=== PATIENT | male | born 1980 | race Caucasian/White ===

== ENCOUNTER 2016-10-04 10:04 | Inpatient (IN) | payer OTHER ==
[~2016-10-04] VITALS: Ht 188 cm; Wt 77.2 kg
[2016-10-04] VITALS (36 sets, daily range): BP systolic 97–124; BP diastolic 63–81
[~2016-10-04 10:04] MED LIST: ETOMIDATE (2MG/ML) 20ML VIAL IV ONE; SUCCINYLCHOLINE CHLORIDE 20 MG/ML 10ML VIAL IV ONE
[2016-10-04] MEDS ORDERED: MIDAZOLAM DRIP 100 mg/100mL NS 100 ML IV ONE (10:05)
[2016-10-04 10:47] LABS: DEFINITIVE VIEW TRANSMISSION; Hemoglobin 12.6 g/dL (13.5-17.5); Mean Corpuscular Hemoglobin 27.4 pg (28.0-32.0); Mean Corpuscular Hgb Conc. 30.7 g/dL (32.0-36.0); Mean Corpuscular Volume 89.4 fL (80.0-100.0); Platelet Count (auto) 339 10^3/uL (140-450); Red Cell Distribution Width 18.2 % (11.6-16.0); White Blood Cell 14.5 10^3/uL (4.4-10.8)
[2016-10-04 11:04] LABS: Metamyelocytes % 0; Myelocytes % 0; Promyelocytes % 0; Reactive Lymphocytes 0
[2016-10-04 11:05] LABS: Albumin 2.4 g/dL (3.4-5.0); BUN/Creatinine Ratio 8.6; Bilirubin, Total 0.4 mg/dL (0.2-1.0); Calcium 8.5 mg/dL (8.5-10.1); Magnesium 2.6 mg/dL (1.6-2.6); Potassium 3.9 mmol/L (3.5-5.1); Total Protein 6.7 g/dL (6.4-8.2)
[2016-10-04 11:40] LABS: Platelet Estimate Adequate
[2016-10-04 11:43] LABS: Lactic Acid 7.8 mmol/L (0.4-2.0)
[2016-10-04 12:00] LABS: REFLEX LACTIC ACID YES OR NO YES
[2016-10-04] MEDS ORDERED: CLINDAMYCIN 900MG IV 50 ML IV ONE (13:00)
[2016-10-04] MEDS ORDERED: PIPERACILLIN-TAZOB 3.375GM 100 ML IV ONE (13:00)
[2016-10-04 13:37] LABS: Lactic Acid 3.5 mmol/L (0.4-2.0)
[2016-10-04] MEDS ORDERED: FUROSEMIDE 40 MG/4 ML VIAL IV ONE (13:45)
[2016-10-04] MEDS ORDERED: NITROGLYCERIN 0.4 MG SL TAB SL PRN (13:45)
[2016-10-04] MEDS ORDERED: DEXTROSE (50%) 50ML SYRG IV PRN (13:45)
[2016-10-04] MEDS ORDERED: ONDANSETRON HCL 4 MG/2 ML VIAL IV PRN (13:45)
[2016-10-04] MEDS ORDERED: MORPHINE SULF INJ 2 MG/ML SYRINGE 1ML IV PRN ×2 (13:45)
[2016-10-04] MEDS: SODIUM CHLORIDE 0.9% 1,000 ML IV SCH (13:51)
[2016-10-04 13:59] LABS: B-Type Natriuretic Peptide 4089.17 pg/mL (0-100); Temperature: 22.3 C (20.0-25.0)
[2016-10-04] MEDS: ENOXAPARIN SOD 40 MG/0.4 ML SYRINGE SC SCH (14:01)
[2016-10-04 14:08] LABS: REFLEX LACTIC ACID YES OR NO YES
[2016-10-04] MEDS ORDERED: DOPamine 1600MCG/ML 250 ML IV SCH (15:00)
[2016-10-04] MEDS: AMIODARONE HCL 900 MG in DEXTROSE 500 ML IV SCH (15:39)
[2016-10-04] MEDS: MIDAZOLAM DRIP 100 mg/100mL NS 100 ML IV SCH ×2 (15:55→22:28)
[2016-10-04] MEDS: InsuLIN REG 1unit/0.01ml Soln (100units/ml) SC SCH (18:00)
[2016-10-04] MEDS: ACCU-CHEK COMFORT CURVE STRIP VI SCH (18:00)
[2016-10-04 18:34] LABS: REFLEX LACTIC ACID YES OR NO YES
[2016-10-04] MEDS: PIPERACILLIN-TAZOB 2.25GM 50 ML IV SCH (19:00)
[2016-10-04] MEDS ORDERED: SODIUM BICARBONATE 8.4% INJ 50ML SYRINGE IV ONE (19:07)
[2016-10-04] MEDS ORDERED: EPINEPHrine HCL 1 MG/10 ML SYRG IV ONE (19:07)
[2016-10-04 20:05] LABS: REFLEX LACTIC ACID YES OR NO YES
[2016-10-04 20:10] LABS: Urine Bilirubin Negative (Negative); Urine Color Colorless (Yellow); Urine Glucose Normal (Normal); Urine Ketone Negative (Negative); Urine Nitrite Negative (Negative); Urine RBC 10 /hpf (0 - 3); Urine Squamous Epithelial Cell MOD /hpf (<5); Urine Urobilinogen Normal (Negative); Urine pH 7.5 (5.0-8.0)
[2016-10-04 20:12] LABS: Urine Blood 1+ /uL (Negative)
[2016-10-04] MEDS ORDERED: CLINDAMYCIN 300MG IV 50 ML IV SCH (22:00)
[2016-10-04] MEDS: FAMOTIDINE (10MG/ML) 2ML VL IV SCH (22:05)
[2016-10-05] VITALS (101 sets, daily range): BP systolic 93–121; BP diastolic 47–82
[2016-10-05] MEDS: InsuLIN REG 1unit/0.01ml Soln (100units/ml) SC SCH ×4 (00:32→18:00)
[2016-10-05] MEDS: ACCU-CHEK COMFORT CURVE STRIP VI SCH ×4 (00:32→18:13)
[2016-10-05] MEDS: PIPERACILLIN-TAZOB 2.25GM 50 ML IV SCH ×4 (00:34→18:14)
[2016-10-05] MEDS: PROPOFOL 100 ML IV SCH ×2 (00:36→21:30)
[2016-10-05 03:28] LABS: Basophils # (auto) 0.1 uL; Basophils % (auto) 0.9 % (0.0-2.0); Eosinophils # (auto) 0 uL; Eosinophils % (auto) 0.3 % (0.0-7.0); Hemoglobin 12.9 g/dL (13.5-17.5); Lymphocytes % (auto) 17.7 % (10.0-50.0); Mean Corpuscular Hemoglobin 27.4 pg (28.0-32.0); Mean Corpuscular Hgb Conc. 31.6 g/dL (32.0-36.0); Mean Corpuscular Volume 86.8 fL (80.0-100.0); Mean Platelet Volume 7.6 fL (7.4-10.4); Monocytes # (auto) 0.6 uL; Monocytes % (auto) 5.8 % (0.0-12.0); Neutrophils # (auto) 8.4 uL; Neutrophils % (auto) 75.3 % (37.0-80.0); Platelet Count (auto) 342 10^3/uL (140-450); Red Cell Distribution Width 17.1 % (11.6-16.0); White Blood Cell 11.1 10^3/uL (4.4-10.8)
[2016-10-05 03:46] LABS: Albumin 2.2 g/dL (3.4-5.0); BUN/Creatinine Ratio 8.4; Calcium 7.9 mg/dL (8.5-10.1); Potassium 3.8 mmol/L (3.5-5.1)
[2016-10-05 03:49] LABS: Bilirubin, Total 0.8 mg/dL (0.2-1.0)
[2016-10-05] MEDS: MIDAZOLAM DRIP 100 mg/100mL NS 100 ML IV SCH ×2 (04:18→10:50)
[2016-10-05] MEDS: SODIUM CHLORIDE 0.9% 1,000 ML IV SCH ×2 (06:21→11:32)
[2016-10-05] MEDS: FUROSEMIDE 40 MG/4 ML VIAL IV SCH (09:28)
[2016-10-05] MEDS: ENOXAPARIN SOD 40 MG/0.4 ML SYRINGE SC SCH (09:28)
[2016-10-05] MEDS: FAMOTIDINE (10MG/ML) 2ML VL IV SCH ×2 (09:29→21:36)
[2016-10-05] MEDS ORDERED: DIGOXIN (250MCG/ML) 2 ML AMPULE IV SCH (10:15)
[2016-10-05] MEDS: fentaNYL Drip 2500mCg/250mlNS 250 ML IV SCH (11:35)
[2016-10-05] MEDS: AMIODARONE HCL 900 MG in DEXTROSE 500 ML IV SCH ×2 (14:15→22:36)
[2016-10-05] MEDS ORDERED: DOPamine 1600MCG/ML 250 ML IV SCH ×2 (15:00)
[2016-10-05] MEDS: DIGOXIN (250MCG/ML) 2 ML AMPULE IV SCH ×2 (16:41→21:38)
[2016-10-05 19:22] LABS: Basophils # (auto) 0.2 uL; Basophils % (auto) 2.4 % (0.0-2.0); DEFINITIVE VIEW TRANSMISSION; Eosinophils # (auto) 0.1 uL; Eosinophils % (auto) 1.2 % (0.0-7.0); Hematocrit 45.9 % (41.0-53.0); Hemoglobin 14.2 g/dL (13.5-17.5); Lymphocytes # (auto) 2.6 uL; Mean Corpuscular Hemoglobin 27.2 pg (28.0-32.0); Mean Corpuscular Hgb Conc. 30.9 g/dL (32.0-36.0); Mean Corpuscular Volume 87.8 fL (80.0-100.0); Mean Platelet Volume 7.3 fL (7.4-10.4); Monocytes # (auto) 0.5 uL; Monocytes % (auto) 4.8 % (0.0-12.0); Neutrophils # (auto) 6.7 uL; Neutrophils % (auto) 65.6 % (37.0-80.0); Platelet Count (auto) 293 10^3/uL (140-450); Red Cell Distribution Width 16.2 % (11.6-16.0); SUSPECT VIEW TRANSMISSION; White Blood Cell 10.1 10^3/uL (4.4-10.8)
[2016-10-05 19:50] LABS: Albumin 2.1 g/dL (3.4-5.0); BUN/Creatinine Ratio 7.7; Bilirubin, Total 0.9 mg/dL (0.2-1.0); Calcium 8.8 mg/dL (8.5-10.1); Potassium 3.4 mmol/L (3.5-5.1); Total Protein 6.3 g/dL (6.4-8.2)
[2016-10-05] MEDS: POTASSIUM CHL 20MEQ/100ML 100 ML IV SCH ×2 (21:35→23:16)
[2016-10-06] VITALS (78 sets, daily range): BP systolic 84–134; BP diastolic 34–87
[2016-10-06] MEDS: PIPERACILLIN-TAZOB 2.25GM 50 ML IV SCH ×3 (01:00→13:27)
[2016-10-06] MEDS: DIGOXIN (250MCG/ML) 2 ML AMPULE IV SCH (03:37)
[2016-10-06 03:47] LABS: Basophils # (auto) 0.1 uL; Basophils % (auto) 1.5 % (0.0-2.0); Eosinophils # (auto) 0.2 uL; Eosinophils % (auto) 2.1 % (0.0-7.0); Hematocrit 41.7 % (41.0-53.0); Hemoglobin 12.9 g/dL (13.5-17.5); Lymphocytes # (auto) 1.9 uL; Lymphocytes % (auto) 21.6 % (10.0-50.0); Mean Corpuscular Hemoglobin 27.2 pg (28.0-32.0); Mean Corpuscular Volume 87.8 fL (80.0-100.0); Mean Platelet Volume 7.5 fL (7.4-10.4); Monocytes # (auto) 0.6 uL; Monocytes % (auto) 7.1 % (0.0-12.0); Neutrophils # (auto) 5.9 uL; Neutrophils % (auto) 67.7 % (37.0-80.0); Platelet Count (auto) 283 10^3/uL (140-450); Red Cell Distribution Width 16.7 % (11.6-16.0); White Blood Cell 8.7 10^3/uL (4.4-10.8)
[2016-10-06 04:06] LABS: BUN/Creatinine Ratio 7.9; Calcium 8.2 mg/dL (8.5-10.1); Magnesium 2.9 mg/dL (1.6-2.6); Potassium 3.8 mmol/L (3.5-5.1)
[2016-10-06] MEDS: InsuLIN REG 1unit/0.01ml Soln (100units/ml) SC SCH ×3 (06:00→12:00)
[2016-10-06] MEDS: ACCU-CHEK COMFORT CURVE STRIP VI SCH ×3 (06:14→12:03)
[2016-10-06] MEDS: SODIUM CHLORIDE 0.9% 1,000 ML IV SCH (06:15)
[2016-10-06] MEDS ORDERED: EPINEPHrine HCL 1 MG/10 ML SYRG IV ONE (07:45)
[2016-10-06] MEDS ORDERED: LIDOCAINE HCL 100 MG/5ML (2%) SYRG INJ IV ONE (07:45)
[2016-10-06] MEDS ORDERED: MAGNESIUM SULF 50% 40 MEQ/10 ML VL IV ONE (07:45)
[2016-10-06] MEDS ORDERED: LIDOCAINE 50MG/5ML INJ 5ML SYRINGE IV ONE (08:30)
[2016-10-06] MEDS ORDERED: LIDOCAINE 4MG/ML IV SOLN 500 ML IV SCH (08:30)
[2016-10-06] MEDS ORDERED: DIGOXIN (250MCG/ML) 2 ML AMPULE IV SCH ×2 (10:00)
[2016-10-06] MEDS: FUROSEMIDE 40 MG/4 ML VIAL IV SCH (10:19)
[2016-10-06] MEDS: ENOXAPARIN SOD 40 MG/0.4 ML SYRINGE SC SCH (10:19)
[2016-10-06] MEDS: FAMOTIDINE (10MG/ML) 2ML VL IV SCH (10:19)
[2016-10-06] MEDS: PROPOFOL 100 ML IV SCH (10:19)
[2016-10-06] MEDS: fentaNYL Drip 2500mCg/250mlNS 250 ML IV SCH (10:48)
[2016-10-06] MEDS: MIDAZOLAM DRIP 100 mg/100mL NS 100 ML IV SCH (13:27)
[2016-10-06] MEDS ORDERED: ONDANSETRON HCL 4 MG/2 ML VIAL ONE (21:21)
[2016-10-06] MEDS ORDERED: ONDANSETRON HCL 4 MG/2 ML VIAL IV PRN (21:30)
[2016-10-07] MEDS: LORazepam 2MG/ML-1ML VIAL IV PRN ×3 (01:42→22:06)
[2016-10-07] MEDS: MORPHINE SULF INJ 2 MG/ML SYRINGE 1ML IV PRN ×3 (01:44→20:24)
[2016-10-07] MEDS ORDERED: AMIO200T33 PO (02:54)
[2016-10-07] MEDS ORDERED: DIGO0.1262 PO (02:55)
[2016-10-07] MEDS ORDERED: ENOX80IN8 SC (02:57)
[2016-10-07] MEDS ORDERED: METO25TA62 PO (02:57)
[2016-10-07 05:26] VITALS: BP 115/63
[2016-10-07 08:45] VITALS: BP 115/68
[2016-10-07 13:00] VITALS: BP 124/74
[2016-10-07] MEDS ORDERED: DIGOXIN 0.125 MG TAB PO ONE (16:45)
[2016-10-07] MEDS ORDERED: METOPROLOL TARTRATE 25 MG TAB PO ONE (16:45)
[2016-10-07] MEDS: AMIODARONE HCL 200 MG TAB PO SCH (16:50)
[2016-10-07 16:57] VITALS: BP 116/72
[2016-10-07] MEDS: ENOXAPARIN SOD 60 MG/0.6 ML SYRINGE SC SCH (17:33)
[2016-10-07 22:57] VITALS: BP 115/69
[2016-10-08] VITALS (7 sets, daily range): BP systolic 111–122; BP diastolic 70–81
[2016-10-08] MEDS: MORPHINE SULF INJ 2 MG/ML SYRINGE 1ML IV PRN ×6 (01:26→20:10)
[2016-10-08] MEDS: ENOXAPARIN SOD 60 MG/0.6 ML SYRINGE SC SCH ×2 (06:38→17:20)
[2016-10-08] MEDS: DIGOXIN 0.125 MG TAB PO SCH (09:35)
[2016-10-08] MEDS: AMIODARONE HCL 200 MG TAB PO SCH (09:36)
[2016-10-08] MEDS ORDERED: METOPROLOL TARTRATE 25 MG TAB PO SCH (10:00)
[2016-10-08] MEDS ORDERED: FUROSEMIDE 20 MG TAB PO ONE (11:40)
[2016-10-08] MEDS ORDERED: SPIRONOLACTONE 25 MG TAB PO ONE (11:45)
[2016-10-08] MEDS ORDERED: DEXTROSE (50%) 50ML SYRG IV PRN (11:45)
[2016-10-08] MEDS ORDERED: ASPirin-EC 81 mg tab PO ONE (12:00)
[2016-10-08 12:58] LABS: B-Type Natriuretic Peptide 2120.42 pg/mL (0-100); Temperature: 22.3 C (20.0-25.0)
[2016-10-08] MEDS: PIPERACILLIN-TAZOB 3.375GM 100 ML IV SCH ×2 (14:31→17:19)
[2016-10-08] MEDS: ACCU-CHEK COMFORT CURVE STRIP VI SCH ×2 (17:00→21:47)
[2016-10-08] MEDS: InsuLIN REG 1unit/0.01ml Soln (100units/ml) SC SCH ×2 (17:00→21:48)
[2016-10-08] MEDS: CARVEDILOL 3.125 MG TAB PO SCH (22:00)
[2016-10-08] MEDS: ATORVASTATIN 20 MG TAB PO SCH (22:00)
[2016-10-08] MEDS: LORazepam 2MG/ML-1ML VIAL IV PRN (23:26)
[2016-10-09 01:51] VITALS: BP 107/68
[2016-10-09] MEDS: MORPHINE SULF INJ 2 MG/ML SYRINGE 1ML IV PRN ×8 (01:52→23:44)
[2016-10-09 04:59] VITALS: BP 104/61
[2016-10-09] MEDS: ENOXAPARIN SOD 60 MG/0.6 ML SYRINGE SC SCH ×2 (05:39→17:16)
[2016-10-09] MEDS: PIPERACILLIN-TAZOB 3.375GM 100 ML IV SCH ×4 (05:43→17:17)
[2016-10-09 06:05] LABS: Basophils # (auto) 0.1 uL; Basophils % (auto) 0.7 % (0.0-2.0); Eosinophils # (auto) 0.2 uL; Eosinophils % (auto) 2.7 % (0.0-7.0); Hematocrit 40.6 % (41.0-53.0); Hemoglobin 12.6 g/dL (13.5-17.5); Lymphocytes # (auto) 3.2 uL; Lymphocytes % (auto) 39.1 % (10.0-50.0); Mean Corpuscular Hemoglobin 27.1 pg (28.0-32.0); Mean Corpuscular Volume 87.6 fL (80.0-100.0); Mean Platelet Volume 8.1 fL (7.4-10.4); Monocytes # (auto) 0.7 uL; Monocytes % (auto) 8.1 % (0.0-12.0); Neutrophils # (auto) 4.1 uL; Neutrophils % (auto) 49.4 % (37.0-80.0); Platelet Count (auto) 354 10^3/uL (140-450); Red Cell Distribution Width 17.3 % (11.6-16.0); White Blood Cell 8.3 10^3/uL (4.4-10.8)
[2016-10-09] MEDS: InsuLIN REG 1unit/0.01ml Soln (100units/ml) SC SCH ×4 (06:18→22:00)
[2016-10-09] MEDS: ACCU-CHEK COMFORT CURVE STRIP VI SCH ×4 (06:18→22:01)
[2016-10-09 06:22] LABS: BUN/Creatinine Ratio 5.7; Calcium 8.1 mg/dL (8.5-10.1); Magnesium 1.8 mg/dL (1.6-2.6); Potassium 3.6 mmol/L (3.5-5.1)
[2016-10-09 08:48] VITALS: BP 117/78
[2016-10-09] MEDS: CARVEDILOL 3.125 MG TAB PO SCH ×2 (08:51→22:00)
[2016-10-09] MEDS: ASPirin-EC 81 mg tab PO SCH (08:54)
[2016-10-09] MEDS: FUROSEMIDE 20 MG TAB PO SCH (09:29)
[2016-10-09] MEDS: AMIODARONE HCL 200 MG TAB PO SCH (09:29)
[2016-10-09] MEDS: POTASSIUM CHL 10 Meq TABLET PO SCH (09:29)
[2016-10-09] MEDS: DIGOXIN 0.125 MG TAB PO SCH (09:32)
[2016-10-09] MEDS: SPIRONOLACTONE 25 MG TAB PO SCH (09:32)
[2016-10-09] MEDS: LORazepam 2MG/ML-1ML VIAL IV PRN (10:26)
[2016-10-09] MEDS ORDERED: LIDOCAINE HCL 2% TOP PRN (10:45)
[2016-10-09] MEDS: LIDOCAINE HCL 2% TOP JELLY 5ML TOP PRN (11:41)
[2016-10-09 13:02] VITALS: BP 119/75
[2016-10-09] MEDS: CIPROFLOXACIN 400MG/200ML 200 ML IV SCH (14:26)
[2016-10-09 17:45] VITALS: BP 127/87
[2016-10-09] MEDS: ATORVASTATIN 20 MG TAB PO SCH (21:51)
[2016-10-09 22:14] VITALS: BP 114/79
[2016-10-10] MEDS: PIPERACILLIN-TAZOB 3.375GM 100 ML IV SCH ×4 (00:38→17:41)
[2016-10-10] MEDS: LIDOCAINE HCL 2% TOP JELLY 5ML TOP PRN ×2 (00:48→10:40)
[2016-10-10] MEDS: MORPHINE SULF INJ 2 MG/ML SYRINGE 1ML IV PRN ×8 (02:17→22:28)
[2016-10-10] MEDS: CIPROFLOXACIN 400MG/200ML 200 ML IV SCH ×2 (04:11→14:27)
[2016-10-10 05:17] VITALS: BP 113/66
[2016-10-10] MEDS: ENOXAPARIN SOD 60 MG/0.6 ML SYRINGE SC SCH ×2 (05:57→17:40)
[2016-10-10] MEDS: ACCU-CHEK COMFORT CURVE STRIP VI SCH ×4 (05:58→21:19)
[2016-10-10] MEDS: InsuLIN REG 1unit/0.01ml Soln (100units/ml) SC SCH ×4 (05:59→21:19)
[2016-10-10 06:50] LABS: Basophils # (auto) 0.1 uL; Basophils % (auto) 1.1 % (0.0-2.0); Eosinophils # (auto) 0.2 uL; Eosinophils % (auto) 2.4 % (0.0-7.0); Hematocrit 38.3 % (41.0-53.0); Hemoglobin 11.9 g/dL (13.5-17.5); Lymphocytes # (auto) 2.7 uL; Lymphocytes % (auto) 33.8 % (10.0-50.0); Mean Corpuscular Hemoglobin 27.1 pg (28.0-32.0); Mean Corpuscular Hgb Conc. 31.2 g/dL (32.0-36.0); Mean Corpuscular Volume 86.7 fL (80.0-100.0); Mean Platelet Volume 8.4 fL (7.4-10.4); Monocytes # (auto) 0.7 uL; Monocytes % (auto) 8.5 % (0.0-12.0); Neutrophils # (auto) 4.3 uL; Neutrophils % (auto) 54.2 % (37.0-80.0); Platelet Count (auto) 344 10^3/uL (140-450); Red Cell Distribution Width 17.4 % (11.6-16.0); White Blood Cell 7.9 10^3/uL (4.4-10.8)
[2016-10-10 07:15] LABS: Albumin 2.1 g/dL (3.4-5.0); Magnesium 1.7 mg/dL (1.6-2.6); Potassium 3.6 mmol/L (3.5-5.1)
[2016-10-10 07:17] LABS: BUN/Creatinine Ratio 5.7
[2016-10-10 07:20] LABS: Bilirubin, Total 0.5 mg/dL (0.2-1.0); INR 1.43 (0.9-1.15); Prothrombin Time 14.7 sec (9.37-12.3); Total Protein 5.9 g/dL (6.4-8.2)
[2016-10-10] MEDS: LORazepam 2MG/ML-1ML VIAL IV PRN ×2 (08:44→15:56)
[2016-10-10 08:55] VITALS: BP 107/81
[2016-10-10] MEDS: CARVEDILOL 3.125 MG TAB PO SCH ×2 (10:00→22:36)
[2016-10-10] MEDS: ASPirin-EC 81 mg tab PO SCH (10:00)
[2016-10-10] MEDS: SPIRONOLACTONE 25 MG TAB PO SCH (10:00)
[2016-10-10] MEDS: AMIODARONE HCL 200 MG TAB PO SCH (10:38)
[2016-10-10] MEDS: FUROSEMIDE 20 MG TAB PO SCH (10:38)
[2016-10-10] MEDS: DIGOXIN 0.125 MG TAB PO SCH (10:39)
[2016-10-10] MEDS: POTASSIUM CHL 10 Meq TABLET PO SCH (10:39)
[2016-10-10 12:55] VITALS: BP 124/85
[2016-10-10] MEDS ORDERED: HYDROCORTONE 1% TOPICAL CREAM 30 GM TUBE TOP PRN (13:45)
[2016-10-10] MEDS ORDERED: diphenhdrAMINE HCL 25 MG CAP PO PRN (13:45)
[2016-10-10 16:44] VITALS: BP 122/84
[2016-10-10 21:42] VITALS: BP 124/85
[2016-10-10] MEDS: ATORVASTATIN 20 MG TAB PO SCH (22:36)
[2016-10-11] MEDS: PIPERACILLIN-TAZOB 3.375GM 100 ML IV SCH ×3 (00:38→11:37)
[2016-10-11] MEDS: MORPHINE SULF INJ 2 MG/ML SYRINGE 1ML IV PRN ×4 (00:46→22:04)
[2016-10-11] MEDS: CIPROFLOXACIN 400MG/200ML 200 ML IV SCH ×2 (03:00→15:00)
[2016-10-11 04:35] VITALS: BP 119/75
[2016-10-11 05:15] LABS: Basophils # (auto) 0.1 uL; Eosinophils # (auto) 0.2 uL; Eosinophils % (auto) 2.4 % (0.0-7.0); Hematocrit 38.7 % (41.0-53.0); Hemoglobin 12.1 g/dL (13.5-17.5); Lymphocytes # (auto) 2.4 uL; Lymphocytes % (auto) 32.7 % (10.0-50.0); Mean Corpuscular Hgb Conc. 31.3 g/dL (32.0-36.0); Mean Corpuscular Volume 86.5 fL (80.0-100.0); Mean Platelet Volume 8.1 fL (7.4-10.4); Monocytes # (auto) 0.7 uL; Monocytes % (auto) 9.3 % (0.0-12.0); Neutrophils # (auto) 4.1 uL; Neutrophils % (auto) 54.6 % (37.0-80.0); Platelet Count (auto) 368 10^3/uL (140-450); Red Cell Distribution Width 17.5 % (11.6-16.0); White Blood Cell 7.4 10^3/uL (4.4-10.8)
[2016-10-11 05:36] LABS: INR 1.57 (0.9-1.15); Prothrombin Time 16.2 sec (9.37-12.3)
[2016-10-11 05:39] LABS: Potassium 3.4 mmol/L (3.5-5.1)
[2016-10-11 05:47] LABS: BUN/Creatinine Ratio 5.4; Calcium 7.9 mg/dL (8.5-10.1); Magnesium 1.7 mg/dL (1.6-2.6)
[2016-10-11] MEDS: ACCU-CHEK COMFORT CURVE STRIP VI SCH ×4 (05:53→22:08)
[2016-10-11] MEDS: InsuLIN REG 1unit/0.01ml Soln (100units/ml) SC SCH ×4 (05:53→22:00)
[2016-10-11 09:00] VITALS: BP 116/80
[2016-10-11] MEDS: DOCUSATE SOD 100 MG CAP PO SCH ×2 (10:00→21:55)
[2016-10-11] MEDS: AMIODARONE HCL 200 MG TAB PO SCH (10:00)
[2016-10-11] MEDS: SPIRONOLACTONE 25 MG TAB PO SCH (10:00)
[2016-10-11] MEDS: ASPirin-EC 81 mg tab PO SCH (10:00)
[2016-10-11] MEDS: CARVEDILOL 3.125 MG TAB PO SCH ×2 (10:19→21:57)
[2016-10-11] MEDS: FUROSEMIDE 20 MG TAB PO SCH (10:19)
[2016-10-11] MEDS: POTASSIUM CHL 10 Meq TABLET PO SCH (10:19)
[2016-10-11] MEDS: DIGOXIN 0.125 MG TAB PO SCH (10:19)
[2016-10-11] MEDS ORDERED: IOHEXOL 350 MG/ML 100ML IJ ONE ×2 (11:17→14:03)
[2016-10-11] MEDS ORDERED: LIDOCAINE 2%HCL (LOCAL ANESTH.) INJ 20ML MDV ONE ×4 (11:17→17:14)
[2016-10-11] MEDS: LORazepam 2MG/ML-1ML VIAL IV PRN (11:52)
[2016-10-11] MEDS ORDERED: MAGNESIUM SULFATE 1GM/100ML 100 ML IV ONE (12:45)
[2016-10-11 12:46] VITALS: BP 123/84
[2016-10-11] MEDS ORDERED: POTASSIUM CHL 10 Meq TABLET PO ONE (13:00)
[2016-10-11] MEDS ORDERED: VANCOMYCIN HCL 1000 MG VL IR ONE (13:30)
[2016-10-11] MEDS ORDERED: ceFAZolin 1GM/50ML D5W 50 ML IV ONE ×2 (13:30→13:35)
[2016-10-11] MEDS ORDERED: VANCOMYCIN 1GM/250ML D5W 250 ML IV ONE ×2 (13:30→13:35)
[2016-10-11] MEDS ORDERED: VANCOMYCIN HCL 1000 MG VL ONE (13:35)
[2016-10-11] MEDS ORDERED: fentaNYL CITRATE 100 MCG/2 ML VL ONE ×2 (14:27→16:54)
[2016-10-11] MEDS ORDERED: MIDAZOLAM HCL 1MG/1ML-2 ML VIAL ONE ×3 (14:27→17:33)
[2016-10-11] MEDS ORDERED: HYDROmorphone HCL 2 MG/ML VL ONE (17:12)
[2016-10-11] MEDS ORDERED: NALOXONE HCL 0.4 MG/ML VIAL ONE (17:50)
[2016-10-11] MEDS ORDERED: FLUMAZENIL 0.1 MG/ML INJ 10ML MDV IV ONE (17:51)
[2016-10-11] MEDS ORDERED: FUROSEMIDE 40 MG/4 ML VIAL ONE (17:59)
[2016-10-11] MEDS: ENOXAPARIN SOD 60 MG/0.6 ML SYRINGE SC SCH (18:00)
[2016-10-11] MEDS: VANCOMYCIN 1GM/250ML D5W 250 ML IV SCH (21:48)
[2016-10-11] MEDS: ATORVASTATIN 20 MG TAB PO SCH (21:56)
[2016-10-11 22:00] VITALS: BP 109/76
[2016-10-12] MEDS: MORPHINE SULF INJ 2 MG/ML SYRINGE 1ML IV PRN ×10 (00:12→22:13)
[2016-10-12] MEDS: CIPROFLOXACIN 400MG/200ML 200 ML IV SCH ×2 (02:59→14:50)
[2016-10-12] MEDS: LORazepam 2MG/ML-1ML VIAL IV PRN (04:44)
[2016-10-12 05:10] LABS: Basophils # (auto) 0.1 uL; Basophils % (auto) 1.4 % (0.0-2.0); Eosinophils # (auto) 0.1 uL; Eosinophils % (auto) 1.5 % (0.0-7.0); Hematocrit 37.8 % (41.0-53.0); Lymphocytes # (auto) 2.1 uL; Mean Corpuscular Hemoglobin 27.3 pg (28.0-32.0); Mean Corpuscular Hgb Conc. 31.7 g/dL (32.0-36.0); Mean Platelet Volume 8.2 fL (7.4-10.4); Monocytes # (auto) 0.9 uL; Monocytes % (auto) 10.4 % (0.0-12.0); Neutrophils # (auto) 5.3 uL; Neutrophils % (auto) 61.7 % (37.0-80.0); Platelet Count (auto) 385 10^3/uL (140-450); Red Cell Distribution Width 17.8 % (11.6-16.0); White Blood Cell 8.5 10^3/uL (4.4-10.8)
[2016-10-12 05:16] VITALS: BP 108/75
[2016-10-12 05:33] LABS: Calcium 8.1 mg/dL (8.5-10.1); Magnesium 1.9 mg/dL (1.6-2.6); Potassium 3.9 mmol/L (3.5-5.1)
[2016-10-12 05:40] LABS: BUN/Creatinine Ratio 5.9
[2016-10-12] MEDS: ENOXAPARIN SOD 60 MG/0.6 ML SYRINGE SC SCH (06:27)
[2016-10-12] MEDS: InsuLIN REG 1unit/0.01ml Soln (100units/ml) SC SCH ×4 (06:31→22:00)
[2016-10-12] MEDS: ACCU-CHEK COMFORT CURVE STRIP VI SCH ×4 (06:31→22:20)
[2016-10-12 09:05] VITALS: BP 129/92
[2016-10-12] MEDS: VANCOMYCIN 1GM/250ML D5W 250 ML IV SCH (09:50)
[2016-10-12] MEDS: ASPirin-EC 81 mg tab PO SCH (09:50)
[2016-10-12] MEDS: CARVEDILOL 3.125 MG TAB PO SCH ×2 (09:50→22:12)
[2016-10-12] MEDS: AMIODARONE HCL 200 MG TAB PO SCH (09:51)
[2016-10-12] MEDS: SPIRONOLACTONE 25 MG TAB PO SCH (09:51)
[2016-10-12] MEDS: POTASSIUM CHL 10 Meq TABLET PO SCH (09:51)
[2016-10-12] MEDS: DIGOXIN 0.125 MG TAB PO SCH (09:51)
[2016-10-12] MEDS: FUROSEMIDE 20 MG TAB PO SCH (09:51)
[2016-10-12] MEDS: DOCUSATE SOD 100 MG CAP PO SCH ×2 (09:51→22:11)
[2016-10-12] MEDS ORDERED: MAGNESIUM SULFATE 1GM/100ML 100 ML IV ONE (11:00)
[2016-10-12 12:39] VITALS: BP 126/91
[2016-10-12 16:46] VITALS: BP 127/77
[2016-10-12 21:30] VITALS: BP 120/78
[2016-10-12] MEDS ORDERED: APIXABAN 5 MG TAB PO SCH (22:00)
[2016-10-12] MEDS: ATORVASTATIN 20 MG TAB PO SCH (22:11)
[2016-10-13] MEDS: MORPHINE SULF INJ 2 MG/ML SYRINGE 1ML IV PRN ×3 (00:57→11:24)
[2016-10-13] MEDS: CIPROFLOXACIN 400MG/200ML 200 ML IV SCH (02:38)
[2016-10-13 05:35] VITALS: BP 109/68
[2016-10-13] MEDS: InsuLIN REG 1unit/0.01ml Soln (100units/ml) SC SCH ×4 (06:36→22:00)
[2016-10-13] MEDS: ACCU-CHEK COMFORT CURVE STRIP VI SCH ×4 (06:36→22:16)
[2016-10-13 07:12] LABS: BUN/Creatinine Ratio 6.2; Calcium 8.2 mg/dL (8.5-10.1); Potassium 3.6 mmol/L (3.5-5.1)
[2016-10-13 08:42] VITALS: BP 105/62
[2016-10-13] MEDS: Boost Glucose Control 8 Ounces PO SCH ×3 (10:00→22:14)
[2016-10-13] MEDS: ASPirin-EC 81 mg tab PO SCH (11:22)
[2016-10-13] MEDS: FUROSEMIDE 20 MG TAB PO SCH (11:23)
[2016-10-13] MEDS: SPIRONOLACTONE 25 MG TAB PO SCH (11:23)
[2016-10-13] MEDS: AMIODARONE HCL 200 MG TAB PO SCH (11:23)
[2016-10-13] MEDS: DOCUSATE SOD 100 MG CAP PO SCH ×2 (11:24→22:15)
[2016-10-13] MEDS: CARVEDILOL 3.125 MG TAB PO SCH (11:24)
[2016-10-13] MEDS: POTASSIUM CHL 10 Meq TABLET PO SCH (11:24)
[2016-10-13] MEDS: DIGOXIN 0.125 MG TAB PO SCH (11:36)
[2016-10-13] MEDS ORDERED: SPIR25TA88 PO (11:40)
[2016-10-13] MEDS ORDERED: ATOR20TA50 PO (11:40)
[2016-10-13] MEDS ORDERED: CAP125T PO (11:40)
[2016-10-13] MEDS ORDERED: POTA-167 PO (11:40)
[2016-10-13] MEDS ORDERED: ASP81EC PO (11:40)
[2016-10-13] MEDS ORDERED: FUR20T PO (11:40)
[2016-10-13] MEDS ORDERED: SACC250C PO (12:17)
[2016-10-13] MEDS ORDERED: DOXY-216 PO (12:21)
[2016-10-13 13:00] VITALS: BP 121/82
[2016-10-13] MEDS: CAPTOPRIL 12.5 MG TAB PO SCH ×2 (14:45→22:15)
[2016-10-13] MEDS ORDERED: ONDANSETRON HCL 4 MG/2 ML VIAL IV PRN (17:15)
[2016-10-13] MEDS: PRO-STAT 64 30ML PO SCH (17:22)
[2016-10-13 17:34] VITALS: BP 117/73
[2016-10-13] MEDS: HYDROcodone-ACET 5/325MG TAB PO PRN (18:54)
[2016-10-13 22:00] VITALS: BP 109/67
[2016-10-13] MEDS ORDERED: CIPROFLOXACIN HCL 500 MG TAB PO SCH (22:00)
[2016-10-13] MEDS ORDERED: ENOXAPARIN SOD 60 MG/0.6 ML SYRINGE SC SCH (22:00)
[2016-10-13] MEDS: DOXYCYCLINE 100 MG TAB/CAP PO SCH (22:15)
[2016-10-13] MEDS: ATORVASTATIN 20 MG TAB PO SCH (22:15)
[2016-10-13] MEDS: ENOXAPARIN SOD 80 MG/0.8ML SYRINGE SC SCH (22:16)
[2016-10-14 05:00] VITALS: BP 115/75
[2016-10-14] MEDS: CAPTOPRIL 12.5 MG TAB PO SCH (06:10)
[2016-10-14] MEDS: ACCU-CHEK COMFORT CURVE STRIP VI SCH ×2 (06:44→11:30)
[2016-10-14] MEDS: InsuLIN REG 1unit/0.01ml Soln (100units/ml) SC SCH ×2 (06:44→11:30)
[2016-10-14] MEDS: PRO-STAT 64 30ML PO SCH (08:00)
[2016-10-14 08:50] VITALS: BP 126/73
[2016-10-14] MEDS: DOXYCYCLINE 100 MG TAB/CAP PO SCH (08:58)
[2016-10-14] MEDS: POTASSIUM CHL 10 Meq TABLET PO SCH (08:59)
[2016-10-14] MEDS: DIGOXIN 0.125 MG TAB PO SCH (08:59)
[2016-10-14] MEDS: DOCUSATE SOD 100 MG CAP PO SCH (08:59)
[2016-10-14] MEDS: AMIODARONE HCL 200 MG TAB PO SCH (08:59)
[2016-10-14] MEDS: Boost Glucose Control 8 Ounces PO SCH (09:00)
[2016-10-14] MEDS: ENOXAPARIN SOD 80 MG/0.8ML SYRINGE SC SCH (09:00)
[2016-10-14] MEDS: ASPirin-EC 81 mg tab PO SCH (09:00)
[2016-10-14] MEDS: FUROSEMIDE 20 MG TAB PO SCH (09:00)
[2016-10-14] MEDS: SPIRONOLACTONE 25 MG TAB PO SCH (09:00)
[2016-10-14] MEDS: HYDROcodone-ACET 5/325MG TAB PO PRN (10:48)
[2016-10-14] MEDS ORDERED: LACTULOSE 20Gm/30ML SOLN PO ONE (11:00)
[2016-10-14 13:00] VITALS: BP 113/77
== END 2016-10-14 12:00 | DRG 853 ==
LOC: EDUNIT# 10:04 → ER 10:14 → TELE 10:15 → ICU WEST 16:49 → TELE-EAST 10-07 01:07
PROVIDERS: ADMIT Internal Medicine; ATTEND Internal Medicine
PROC: 5A1945Z Respiratory Ventilation, 24-96 Consecutive Hours (ICD-10-PCS; 2016-10-04)
PROC: 0BH17EZ Insertion of Endotracheal Airway into Trachea, Via Natural or Artificial Opening (ICD-10-PCS; 2016-10-04)
PROC: 0JH609Z Insertion of Cardiac Resynchronization Defibrillator Pulse Generator into Chest Subcutaneous Tissue and Fascia, Open Approach (ICD-10-PCS; principal; 2016-10-11)
PROC: 02H63KZ Insertion of Defibrillator Lead into Right Atrium, Percutaneous Approach (ICD-10-PCS; 2016-10-11)
PROC: 02HK3KZ Insertion of Defibrillator Lead into Right Ventricle, Percutaneous Approach (ICD-10-PCS; 2016-10-11)
PROC: B2141ZZ Fluoroscopy of Right Heart using Low Osmolar Contrast (ICD-10-PCS; 2016-10-11)
PROC: 0W993ZX Drainage of Right Pleural Cavity, Percutaneous Approach, Diagnostic (ICD-10-PCS; 2016-10-13)
DX: A41.9 Sepsis, unspecified organism (principal); J96.21 Acute and chronic respiratory failure with hypoxia; I46.9 Cardiac arrest, cause unspecified; I50.43 Acute on chronic combined systolic (congestive) and diastolic (congestive) heart failure; J69.0 Pneumonitis due to inhalation of food and vomit; E43 Unspecified severe protein-calorie malnutrition; G93.41 Metabolic encephalopathy; N17.0 Acute kidney failure with tubular necrosis; D68.69 Other thrombophilia; I13.0 Hypertensive heart and chronic kidney disease with heart failure and stage 1 through stage 4 chronic kidney disease, or unspecified chronic kidney disease; I47.2 Ventricular tachycardia; I42.0 Dilated cardiomyopathy; I48.92 Unspecified atrial flutter; J90 Pleural effusion, not elsewhere classified; Z99.11 Dependence on respirator [ventilator] status; I48.0 Paroxysmal atrial fibrillation; E11.22 Type 2 diabetes mellitus with diabetic chronic kidney disease; N18.9 Chronic kidney disease, unspecified; Z66 Do not resuscitate; F32.9 Major depressive disorder, single episode, unspecified; I45.9 Conduction disorder, unspecified; F43.10 Post-traumatic stress disorder, unspecified; G89.4 Chronic pain syndrome; F41.9 Anxiety disorder, unspecified; K59.00 Constipation, unspecified; Z86.79 Personal history of other diseases of the circulatory system; Z95.810 Presence of automatic (implantable) cardiac defibrillator; Z76.82 Awaiting organ transplant status; Z68.21 Body mass index [BMI] 21.0-21.9, adult
CPT/HCPCS: 31500; 33249; 36415; 36600; 51702; 70450; 71010; 76604; 76942; 80048; 80053; 80061; 80162; 81001; 82805; 82962; 83036; 83605; 83735; 83880; 84484; 85007; 85025; 85027; 85049; 85610; 87040; 87070; 87077; 87081; 87086; 87186; 87205; 92610; 92950; 93005; 93306; 94002; 94003; 96365; 99152; 99291; J0330; J0690; J2250; J2405; J2543; J2704; J3010; J3480; J3490

== ENCOUNTER → 2016-11-15 | Outpatient (CLI) | payer OTHER ==
[~2016-11-15] VITALS: Ht 33 cm; Wt 0.5 kg
[~2016-11-15] MED LIST changes: +AMIO200T33 PO; +ASP81EC PO; +ATOR20TA50 PO; +CAP125T PO; +DIGO0.1262 PO; +DOXY-216 PO; +ENOX80IN8 SC; -ETOMIDATE (2MG/ML) 20ML VIAL IV ONE; +FUR20T PO; +FUROSEMIDE 100 MG/10ML VIAL IV ONE; +FUROSEMIDE 40 MG/4 ML VIAL ONE; +POTA-167 PO; +POTASSIUM CHL 20 Meq TABLET PO ONE; +SACC250C PO; +SPIR25TA88 PO; -SUCCINYLCHOLINE CHLORIDE 20 MG/ML 10ML VIAL IV ONE
[2016-11-15 15:30] VITALS: BP 141/86
[2016-11-15 16:00] VITALS: BP 123/86
== END | disposition home or self-care (01) ==
LOC: CHF HDHVI 15:37
PROVIDERS: ATTEND Internal Medicine Cardiovascular Disease
DX: I50.9 Heart failure, unspecified (principal); I25.10 Atherosclerotic heart disease of native coronary artery without angina pectoris; I42.8 Other cardiomyopathies
CPT/HCPCS: 96374; G0463; J1940

== ENCOUNTER → 2017-02-17 | Outpatient (CLI) | payer OTHER ==
[~2017-02-17] MED LIST changes: -FUROSEMIDE 100 MG/10ML VIAL IV ONE; -FUROSEMIDE 40 MG/4 ML VIAL ONE; -POTASSIUM CHL 20 Meq TABLET PO ONE
== END | disposition home or self-care (01) ==
LOC: LAB 08:31
PROVIDERS: ATTEND Internal Medicine Cardiovascular Disease
DX: T46.0X6D Underdosing of cardiac-stimulant glycosides and drugs of similar action, subsequent encounter (principal)
CPT/HCPCS: 36415; 80162

== ENCOUNTER → 2017-02-24 | Outpatient (CLI) | payer OTHER ==
[2017-02-24 12:54] LABS: Albumin 4.2 g/dL (3.4-5.0); BUN/Creatinine Ratio 13.2; Bilirubin, Total 0.5 mg/dL (0.2-1.0); Calcium 9.6 mg/dL (8.5-10.1); Potassium 4.9 mmol/L (3.5-5.1); Total Protein 8.6 g/dL (6.4-8.2)
== END | disposition home or self-care (01) ==
LOC: LAB 09:46
PROVIDERS: ATTEND Internal Medicine Cardiovascular Disease
DX: I10 Essential (primary) hypertension (principal); R74.8 Abnormal levels of other serum enzymes
CPT/HCPCS: 36415; 80053; 82150; 83690

== ENCOUNTER → 2017-02-28 | Outpatient (CLI) | payer MEDICAID, OTHER ==
[~2017-02-28] MED LIST changes: +KETOROLAC TROMETH 30 MG/ML 1ML VIAL IV ONE; +KETOROLAC TROMETH 60MG/2ML VIAL IM ONE; +LEVOFLOXACIN 500MG 100 ML IV ONE; +LEVOFLOXACIN 500MG 100 ML IV SCH; +ONDANSETRON HCL 4 MG/2 ML VIAL IV ONE; +ONDANSETRON HCL 4 MG/2 ML VIAL ONE; +SODIUM CHLORIDE 0.9% 1,000 ML IV SCH; +cefTRIAXone 1GM/50ML D5W 50 ML IV ONE; +cefTRIAXone 1GM/50ML D5W 50 ML IV SCH
[2017-02-28 16:27] LABS: Basophils # (auto) 0.1 uL; Basophils % (auto) 0.8 % (0.0-2.0); Eosinophils # (auto) 0.2 uL; Eosinophils % (auto) 2.1 % (0.0-7.0); Hematocrit 47.7 % (41.0-53.0); Hemoglobin 15.8 g/dL (13.5-17.5); Lymphocytes # (auto) 2.2 uL; Lymphocytes % (auto) 29.7 % (10.0-50.0); Mean Corpuscular Hemoglobin 29.4 pg (28.0-32.0); Mean Corpuscular Hgb Conc. 33.2 g/dL (32.0-36.0); Mean Corpuscular Volume 88.5 fL (80.0-100.0); Mean Platelet Volume 10.3 fL (7.4-10.4); Monocytes # (auto) 0.5 uL; Monocytes % (auto) 6.4 % (0.0-12.0); Neutrophils # (auto) 4.6 uL; Platelet Count (auto) 286 10^3/uL (140-450); White Blood Cell 7.5 10^3/uL (4.4-10.8)
[2017-02-28 16:39] LABS: Potassium 4.6 mmol/L (3.5-5.1)
[2017-02-28 16:44] LABS: BUN/Creatinine Ratio 15.6; Calcium 9.3 mg/dL (8.5-10.1); Magnesium 2.4 mg/dL (1.6-2.6)
[2017-02-28 17:55] VITALS: BP 109/73
== END | disposition home or self-care (01) ==
LOC: CHF HDHVI 12:13
PROVIDERS: ATTEND Internal Medicine Cardiovascular Disease
DX: I11.0 Hypertensive heart disease with heart failure (principal); I50.40 Unspecified combined systolic (congestive) and diastolic (congestive) heart failure; I48.0 Paroxysmal atrial fibrillation; E11.9 Type 2 diabetes mellitus without complications; Z87.820 Personal history of traumatic brain injury
CPT/HCPCS: 36415; 70450; 71020; 80048; 83735; 85025; 93005; 96365; 96366; 96368; 96375; G0463; J0696; J1885; J1956; J2405; 96367

== ENCOUNTER 2017-05-15 17:59 | Emergency (ER) | payer MEDICAID ==
[~2017-05-15] VITALS: Ht 180.3 cm; Wt 63.5 kg
[~2017-05-15 17:59] MED LIST changes: +B-COTAB56 OR; +CHLO4TAB PO; -DOXY-216 PO; -ENOX80IN8 SC; +HYDR-531 PO; -KETOROLAC TROMETH 30 MG/ML 1ML VIAL IV ONE; -KETOROLAC TROMETH 60MG/2ML VIAL IM ONE; -LEVOFLOXACIN 500MG 100 ML IV ONE; -LEVOFLOXACIN 500MG 100 ML IV SCH; +LORA2TAB89 PO; +LOSA50TA6 PO; +METO25TA62 PO; +MULT1CHW52 PO; +ONDA8TAB6 PO; -ONDANSETRON HCL 4 MG/2 ML VIAL IV ONE; -ONDANSETRON HCL 4 MG/2 ML VIAL ONE; -POTA-167 PO; +SACU1TAB7 PO; +SENN-46 PO; -SODIUM CHLORIDE 0.9% 1,000 ML IV SCH; +ZOLP-158 PO; -cefTRIAXone 1GM/50ML D5W 50 ML IV ONE; -cefTRIAXone 1GM/50ML D5W 50 ML IV SCH
[2017-05-15 18:40] LABS: Urine RBC None Seen /hpf (0 - 3)
[2017-05-15 18:46] LABS: Basophils # (auto) 0 uL; Basophils % (auto) 0.3 % (0.0-2.0); CONDITION Y; Eosinophils # (auto) 0.1 uL; Eosinophils % (auto) 1.5 % (0.0-7.0); Hematocrit 40.1 % (41.0-53.0); Hemoglobin 13.7 g/dL (13.5-17.5); Lymphocytes # (auto) 2.2 uL; Lymphocytes % (auto) 25.7 % (10.0-50.0); Mean Corpuscular Hemoglobin 30.8 pg (28.0-32.0); Mean Corpuscular Hgb Conc. 34.2 g/dL (32.0-36.0); Mean Corpuscular Volume 90.3 fL (80.0-100.0); Mean Platelet Volume 9.4 fL (7.4-10.4); Monocytes # (auto) 0.6 uL; Monocytes % (auto) 7.3 % (0.0-12.0); Neutrophils # (auto) 5.6 uL; Neutrophils % (auto) 65.2 % (37.0-80.0); Platelet Count (auto) 239 10^3/uL (140-450); Red Cell Distribution Width 13.7 % (11.6-16.0); White Blood Cell 8.6 10^3/uL (4.4-10.8)
[2017-05-15 18:55] LABS: Urine Bilirubin Negative (Negative); Urine Blood Negative /uL (Negative); Urine Color Yellow (Yellow); Urine Glucose Normal (Normal); Urine Hyaline Cast MANY /lpf (0 - 2); Urine Ketone Negative (Negative); Urine Mucus FEW (None Seen); Urine Nitrite Negative (Negative); Urine Urobilinogen Normal (Negative); Urine pH 6.5 (5.0-8.0)
[2017-05-15 19:01] LABS: INR 1.05 (0.9-1.15); Partial Thromboplastin Time 24.6 sec (22.64-33.71); Prothrombin Time 11.4 sec (9.37-12.3)
[2017-05-15 19:10] VITALS: BP 107/57
[2017-05-15 19:19] LABS: Albumin 3.9 g/dL (3.4-5.0); Alkaline Phosphatase 83 U/L (45-117); Anion Gap 6 (5-15); Aspartate Aminotransferase 23 U/L (15-37); BUN/Creatinine Ratio 11.1; Bilirubin, Total 0.4 mg/dL (0.2-1.0); Blood Urea Nitrogen 23 mg/dL (7-18); Calcium 8.5 mg/dL (8.5-10.1); Carbon Dioxide 30 mmol/L (21-32); Chloride 101 mmol/L (98-107); GFR African American 47 mL/min; GFR Non-African American 39 mL/min; Glucose 119 mg/dL (74-106); Potassium 4.5 mmol/L (3.5-5.1); Sodium 137 mmol/L (136-145); Total Protein 7.5 g/dL (6.4-8.2)
[2017-05-15 20:11] LABS: B-Type Natriuretic Peptide 28.21 pg/mL (0-100)
[2017-05-15 20:13] LABS: Temperature: 23.3 C (20.0-25.0)
== END 2017-05-15 23:14 | disposition home or self-care (01) ==
LOC: EDBD 17:59 → ER 18:20
DX: I42.9 Cardiomyopathy, unspecified (principal); Z95.0 Presence of cardiac pacemaker; I50.9 Heart failure, unspecified; I95.9 Hypotension, unspecified; R55 Syncope and collapse
CPT/HCPCS: 36415; 71010; 80053; 81001; 83735; 83880; 84443; 84484; 85025; 85610; 85730; 93005; 94761; 99285; J7030

== ENCOUNTER → 2017-05-17 | Outpatient (CLI) | payer MEDICAID ==
[2017-05-17 12:25] VITALS: BP 134/76
[2017-05-17 18:00] LABS: BUN/Creatinine Ratio 15.1; Calcium 8.9 mg/dL (8.5-10.1); Magnesium 2.5 mg/dL (1.6-2.6)
== END | disposition home or self-care (01) ==
LOC: CHF HDHVI 10:20
PROVIDERS: ATTEND Internal Medicine Cardiovascular Disease
DX: I11.0 Hypertensive heart disease with heart failure (principal); I50.9 Heart failure, unspecified; I25.10 Atherosclerotic heart disease of native coronary artery without angina pectoris; E83.42 Hypomagnesemia; E78.5 Hyperlipidemia, unspecified; R11.0 Nausea
CPT/HCPCS: 36415; 80048; 83735; G0463

== ENCOUNTER 2017-06-16 17:12 | Emergency (ER) | payer MEDICAID, OTHER ==
[~2017-06-16] VITALS: Ht 190.5 cm; Wt 94.3 kg
[2017-06-16 18:15] VITALS: BP 124/71
[2017-06-16 18:16] LABS: Basophils # (auto) 0.1 uL; Eosinophils # (auto) 0.2 uL; Eosinophils % (auto) 2.2 % (0.0-7.0); Hematocrit 40.7 % (41.0-53.0); Hemoglobin 13.8 g/dL (13.5-17.5); Lymphocytes % (auto) 28.9 % (10.0-50.0); Mean Corpuscular Hgb Conc. 33.8 g/dL (32.0-36.0); Mean Corpuscular Volume 91.7 fL (80.0-100.0); Mean Platelet Volume 8.8 fL (6.9-10.8); Monocytes # (auto) 0.6 uL; Monocytes % (auto) 8.4 % (0.0-12.0); Neutrophils # (auto) 4.2 uL; Neutrophils % (auto) 59.5 % (37.0-80.0); Platelet Count (auto) 207 10^3/uL (140-450); Red Cell Distribution Width 12.9 % (11.8-14.3); White Blood Cell 7.1 10^3/uL (4.4-10.8)
[2017-06-16] MEDS ORDERED: CLOP75TA28 PO (18:27)
[2017-06-16] MEDS ORDERED: SPIR50TA2 PO (18:28)
[2017-06-16 18:30] LABS: Alkaline Phosphatase 86 U/L (45-117); Anion Gap 6 (5-15); Aspartate Aminotransferase 19 U/L (15-37); BUN/Creatinine Ratio 11.1; Bilirubin, Total 0.3 mg/dL (0.2-1.0); Blood Urea Nitrogen 17 mg/dL (7-18); Calcium 8.8 mg/dL (8.5-10.1); Carbon Dioxide 28 mmol/L (21-32); Chloride 103 mmol/L (98-107); GFR African American 67 mL/min; GFR Non-African American 55 mL/min; Glucose 99 mg/dL (74-106); Magnesium 2.3 mg/dL (1.6-2.6); Potassium 4.2 mmol/L (3.5-5.1); Sodium 137 mmol/L (136-145); Total Protein 7.7 g/dL (6.4-8.2)
[2017-06-16 18:30] LABS: Urine RBC None Seen /hpf (0 - 3)
[2017-06-16] MEDS ORDERED: DICL1GEL26 TOP (18:30)
[2017-06-16] MEDS ORDERED: METO25TA62 PO (18:31)
[2017-06-16] MEDS ORDERED: TAM04C PO (18:32)
[2017-06-16] MEDS ORDERED: POTA10TA51 PO (18:32)
[2017-06-16] MEDS ORDERED: SPIR25TA89 PO (18:33)
[2017-06-16 18:46] LABS: Urine Bilirubin Negative (Negative); Urine Blood Negative /uL (Negative); Urine Color Yellow (Yellow); Urine Glucose Normal (Normal); Urine Ketone Negative (Negative); Urine Mucus FEW (None Seen); Urine Nitrite Negative (Negative); Urine Squamous Epithelial Cell FEW /hpf (<5); Urine Urobilinogen Normal (Negative)
[2017-06-16 19:59] LABS: B-Type Natriuretic Peptide 52.29 pg/mL (0-100)
[2017-06-16 20:09] LABS: Temperature: 21.9 C (20.0-25.0)
== END 2017-06-16 19:31 | disposition home or self-care (01) ==
LOC: ER 17:14
DX: M79.604 Pain in right leg (principal); I50.9 Heart failure, unspecified; Z86.711 Personal history of pulmonary embolism
CPT/HCPCS: 36415; 71010; 80053; 81001; 83735; 83880; 84484; 85025; 85379; 93005; 93971; 94761

== ENCOUNTER 2017-06-27 17:15 | Emergency (ER) | payer MEDICAID ==
[~2017-06-27] VITALS: Ht 190.5 cm; Wt 95.3 kg
[~2017-06-27 17:15] MED LIST changes: -ASP81EC PO; -ATOR20TA50 PO; +CLOP75TA28 PO; +DICL1GEL26 TOP; -LOSA50TA6 PO; +POTA10TA51 PO; -SPIR25TA88 PO; +SPIR25TA89 PO; +SPIR50TA2 PO; +TAM04C PO
[2017-06-27 17:44] VITALS: BP 124/83
[2017-06-27 18:30] LABS: Basophils # (auto) 0.1 uL; Basophils % (auto) 1.2 % (0.0-2.0); Eosinophils # (auto) 0.2 uL; Eosinophils % (auto) 2.5 % (0.0-7.0); Hematocrit 43.2 % (41.0-53.0); Hemoglobin 14.2 g/dL (13.5-17.5); Lymphocytes # (auto) 2.7 uL; Lymphocytes % (auto) 31.9 % (10.0-50.0); Mean Corpuscular Hemoglobin 30.3 pg (28.0-32.0); Mean Corpuscular Hgb Conc. 32.9 g/dL (32.0-36.0); Mean Corpuscular Volume 92.1 fL (80.0-100.0); Mean Platelet Volume 8.9 fL (6.9-10.8); Monocytes # (auto) 0.7 uL; Monocytes % (auto) 8.9 % (0.0-12.0); Neutrophils # (auto) 4.6 uL; Neutrophils % (auto) 55.5 % (37.0-80.0); Platelet Count (auto) 205 10^3/uL (140-450); Red Cell Distribution Width 12.9 % (11.8-14.3); White Blood Cell 8.3 10^3/uL (4.4-10.8)
[2017-06-27 18:33] LABS: Urine RBC None Seen /hpf (0 - 3)
[2017-06-27 18:43] LABS: INR 1.03 (0.9-1.15); Partial Thromboplastin Time 25.7 sec (22.64-33.71); Prothrombin Time 11.2 sec (9.37-12.3)
[2017-06-27 18:51] LABS: Urine Bilirubin Negative (Negative); Urine Blood Negative /uL (Negative); Urine Color Yellow (Yellow); Urine Glucose Normal (Normal); Urine Ketone Negative (Negative); Urine Nitrite Negative (Negative); Urine Urobilinogen Normal (Negative)
[2017-06-27 19:01] LABS: Albumin 4.3 g/dL (3.4-5.0); Alkaline Phosphatase 96 U/L (45-117); Anion Gap 8 (5-15); Aspartate Aminotransferase 25 U/L (15-37); BUN/Creatinine Ratio 10.7; Bilirubin, Total 0.3 mg/dL (0.2-1.0); Blood Urea Nitrogen 17 mg/dL (7-18); Calcium 9.1 mg/dL (8.5-10.1); Carbon Dioxide 28 mmol/L (21-32); Chloride 100 mmol/L (98-107); GFR African American 64 mL/min; GFR Non-African American 53 mL/min; Glucose 96 mg/dL (74-106); Potassium 4.1 mmol/L (3.5-5.1); Sodium 136 mmol/L (136-145); Total Protein 8.3 g/dL (6.4-8.2)
== END 2017-06-27 22:00 | disposition left against medical advice (07) ==
LOC: ER 17:15
DX: R07.89 Other chest pain (principal); Z53.21 Procedure and treatment not carried out due to patient leaving prior to being seen by health care provider
CPT/HCPCS: 36415; 71020; 80053; 81001; 84484; 85025; 85610; 85730; 93005

== ENCOUNTER 2017-07-19 15:32 | Observation (INO) | payer MEDICAID ==
[~2017-07-19] VITALS: Ht 188 cm; Wt 95.3 kg
[2017-07-19 16:07] LABS: Basophils # (auto) 0.1 uL; Basophils % (auto) 1.3 % (0.0-2.0); Eosinophils # (auto) 0.3 uL; Eosinophils % (auto) 3.6 % (0.0-7.0); Lymphocytes % (auto) 25.8 % (10.0-50.0); Mean Corpuscular Hemoglobin 30.6 pg (28.0-32.0); Mean Corpuscular Hgb Conc. 34.1 g/dL (32.0-36.0); Mean Corpuscular Volume 89.7 fL (80.0-100.0); Monocytes # (auto) 0.6 uL; Monocytes % (auto) 8.1 % (0.0-12.0); Neutrophils # (auto) 4.8 uL; Neutrophils % (auto) 61.2 % (37.0-80.0); Nucleated Red Blood Cells % 0.1 %; Platelet Count (auto) 186 10^3/uL (140-450); Red Blood Cells 4.91 10^6/uL (4.5-5.90); Red Cell Distribution Width 12.6 % (11.8-14.3); White Blood Cell 7.8 10^3/uL (4.4-10.8)
[2017-07-19 16:17] LABS: Alanine Aminotransferase 56 U/L (16-61); Albumin 4.2 g/dL (3.4-5.0); Alkaline Phosphatase 108 U/L (45-117); Anion Gap 9 (5-15); Aspartate Aminotransferase 23 U/L (15-37); BUN/Creatinine Ratio 11.3; Bilirubin, Total 0.3 mg/dL (0.2-1.0); Blood Urea Nitrogen 18 mg/dL (7-18); Calcium 9.1 mg/dL (8.5-10.1); Carbon Dioxide 27 mmol/L (21-32); Chloride 99 mmol/L (98-107); GFR African American 63 mL/min; GFR Non-African American 52 mL/min; Glucose 105 mg/dL (74-106); INR 0.98 (0.9-1.15); Magnesium 2.2 mg/dL (1.6-2.6); Partial Thromboplastin Time 24.7 sec (22.64-33.71); Potassium 3.9 mmol/L (3.5-5.1); Prothrombin Time 10.7 sec (9.37-12.3); Sodium 135 mmol/L (136-145); Total Protein 8.4 g/dL (6.4-8.2)
[2017-07-19] MEDS ORDERED: LOSA100T22 PO (16:30)
[2017-07-19] MEDS ORDERED: ATOR20TA PO (16:30)
[2017-07-19] MEDS ORDERED: DEXL60CA3 PO (16:31)
[2017-07-19 18:54] LABS: Urine WBC None Seen /hpf (0 - 3)
[2017-07-19 19:10] LABS: Urine Bacteria NONE SEEN /hpf (None Seen); Urine Blood Negative /uL (Negative); Urine Specific Gravity 1.007 (1.001-1.035)
[2017-07-19 20:00] VITALS: BP 105/63
== END 2017-07-19 20:07 | disposition home or self-care (01) | DRG 144 ==
LOC: EDBD 15:32 → ER 15:35 → OVERFLOW 15:46 → ER 20:07
PROVIDERS: ADMIT Family Medicine; ATTEND Family Medicine
DX: J20.9 Acute bronchitis, unspecified (principal); Z76.82 Awaiting organ transplant status; I42.9 Cardiomyopathy, unspecified; I50.9 Heart failure, unspecified; R79.89 Other specified abnormal findings of blood chemistry; F41.9 Anxiety disorder, unspecified; Z82.49 Family history of ischemic heart disease and other diseases of the circulatory system; Z95.810 Presence of automatic (implantable) cardiac defibrillator
CPT/HCPCS: 36415; 71010; 80053; 81001; 83735; 83880; 84443; 84484; 85025; 85610; 85730; 93005; 99285; G0378

== ENCOUNTER → 2017-09-16 | Outpatient (CLI) | payer MEDICAID ==
[~2017-09-16] MED LIST changes: +ATOR20TA PO; +DEXL60CA3 PO; +LOSA100T22 PO
== END | disposition home or self-care (01) ==
LOC: LAB 08:37
PROVIDERS: ATTEND Internal Medicine Cardiovascular Disease
DX: I48.91 Unspecified atrial fibrillation (principal); Z79.899 Other long term (current) drug therapy
CPT/HCPCS: 36415; 80162

== ENCOUNTER → 2017-10-03 | Outpatient (CLI) | payer MEDICAID | END | disposition home or self-care (01) | LOC: Rad HDHVI 14:43 | PROVIDERS: ATTEND Internal Medicine Cardiovascular Disease | DX: I07.1 Rheumatic tricuspid insufficiency (principal); I10 Essential (primary) hypertension; I42.0 Dilated cardiomyopathy | CPT/HCPCS: 93306 ==

== ENCOUNTER 2018-03-04 19:24 | Observation (INO) | payer SELFPAY ==
[~2018-03-04] VITALS: Ht 190.5 cm; Wt 95.3 kg
[2018-03-04 20:32] VITALS: BP 135/86
[2018-03-04 22:23] LABS: Basophils # (auto) 0.1 uL; Eosinophils # (auto) 0.2 uL; Eosinophils % (auto) 2.6 % (0.0-7.0); Hematocrit 43.5 % (41.0-53.0); Hemoglobin 14.7 g/dL (13.5-17.5); Lymphocytes # (auto) 2.4 uL; Lymphocytes % (auto) 28.9 % (10.0-50.0); Mean Corpuscular Hemoglobin 29.5 pg (28.0-32.0); Mean Corpuscular Hgb Conc. 33.8 g/dL (32.0-36.0); Mean Corpuscular Volume 87.4 fL (80.0-100.0); Monocytes # (auto) 0.7 uL; Monocytes % (auto) 8.2 % (0.0-12.0); Neutrophils # (auto) 4.8 uL; Neutrophils % (auto) 59.3 % (37.0-80.0); Nucleated Red Blood Cells % 0.1 %; Platelet Count (auto) 176 10^3/uL (140-450); Red Blood Cells 4.98 10^6/uL (4.5-5.90); Red Cell Distribution Width 13.3 % (11.8-14.3); White Blood Cell 8.1 10^3/uL (4.4-10.8)
[2018-03-04 22:36] LABS: INR 0.99 (0.9-1.15); Partial Thromboplastin Time 24.7 sec (23.78-33.04); Prothrombin Time 10.6 sec (9.27-12.13)
[2018-03-04 22:38] LABS: Albumin 3.4 g/dL (3.4-5.0); Anion Gap 6 (5-15); Blood Urea Nitrogen 13 mg/dL (7-18); Calcium 8.4 mg/dL (8.5-10.1); Carbon Dioxide 27 mmol/L (21-32); Chloride 109 mmol/L (98-107); Glucose 93 mg/dL (74-106); Magnesium 2.1 mg/dL (1.6-2.6); Potassium 4.1 mmol/L (3.5-5.1); Sodium 142 mmol/L (136-145)
[2018-03-04 22:40] LABS: Alanine Aminotransferase 28 U/L (16-61); Aspartate Aminotransferase 19 U/L (15-37); BUN/Creatinine Ratio 11.9; GFR African American 98 mL/min; GFR Non-African American 81 mL/min
[2018-03-04 22:45] LABS: Alkaline Phosphatase 81 U/L (45-117); Bilirubin, Total 0.2 mg/dL (0.2-1.0); Total Protein 6.7 g/dL (6.4-8.2)
== END 2018-03-04 22:24 | disposition left against medical advice (07) | DRG 303 ==
LOC: EDBD 19:24 → ER 19:28 → OVERFLOW 19:29 → ER 22:24
PROVIDERS: ADMIT Family Medicine; ATTEND Family Medicine
DX: I25.110 Atherosclerotic heart disease of native coronary artery with unstable angina pectoris (principal); I50.9 Heart failure, unspecified; F41.9 Anxiety disorder, unspecified; Z82.49 Family history of ischemic heart disease and other diseases of the circulatory system; Z95.810 Presence of automatic (implantable) cardiac defibrillator; Z79.899 Other long term (current) drug therapy
CPT/HCPCS: 36415; 71045; 80053; 83735; 83880; 84443; 84484; 85025; 85610; 85730; 93005; 99285; G0378

== ENCOUNTER → 2018-06-29 | Outpatient (CLI) | payer MEDICAID ==
[~2018-06-29] MED LIST changes: -ATOR20TA PO; -CAP125T PO; -DEXL60CA3 PO; -DICL1GEL26 TOP; +FURO20TA PO; +ONDA-143 PO; -ONDA8TAB6 PO; -SACU1TAB7 PO; -SPIR25TA89 PO; -SPIR50TA2 PO
[2018-06-29 10:05] VITALS: BP 111/70
[2018-06-29 12:00] VITALS: BP 103/64
[2018-06-29 16:45] LABS: Basophils # (auto) 0.1 uL; Basophils % (auto) 1.9 % (0.0-2.0); Eosinophils # (auto) 0.2 uL; Eosinophils % (auto) 2.9 % (0.0-7.0); Hematocrit 47.9 % (41.0-53.0); Hemoglobin 16.1 g/dL (13.5-17.5); Lymphocytes # (auto) 1.8 uL; Lymphocytes % (auto) 25.3 % (10.0-50.0); Mean Corpuscular Hemoglobin 30.4 pg (28.0-32.0); Mean Corpuscular Hgb Conc. 33.7 g/dL (32.0-36.0); Mean Corpuscular Volume 90.4 fL (80.0-100.0); Monocytes # (auto) 0.8 uL; Monocytes % (auto) 10.4 % (0.0-12.0); Neutrophils # (auto) 4.3 uL; Neutrophils % (auto) 59.5 % (37.0-80.0); Nucleated Red Blood Cells % 0.3 %; Platelet Count (auto) 299 10^3/uL (140-450); Red Cell Distribution Width 14.4 % (11.8-14.3); White Blood Cell 7.3 10^3/uL (4.4-10.8)
[2018-06-29 17:04] LABS: Potassium 4.8 mmol/L (3.5-5.1)
== END | disposition home or self-care (01) ==
LOC: CHF HDHVI 10:15
PROVIDERS: ATTEND Internal Medicine Cardiovascular Disease
DX: I11.0 Hypertensive heart disease with heart failure (principal); I50.9 Heart failure, unspecified; G40.89 Other seizures; R94.4 Abnormal results of kidney function studies; E87.6 Hypokalemia; E55.9 Vitamin D deficiency, unspecified; E11.9 Type 2 diabetes mellitus without complications; D64.9 Anemia, unspecified
CPT/HCPCS: 36415; 80162; 80185; 82306; 82565; 83036; 83880; 84132; 84520; 85025

== ENCOUNTER → 2018-07-18 | Outpatient (CLI) | payer MEDICAID ==
[~2018-07-18] MED LIST changes: +CYANOCOBALAMIN (B-12) 1000 MCG/1 ML VIAL IM ONE; +CYANOCOBALAMIN (B-12) 1000 MCG/1 ML VIAL ONE
[2018-07-18 10:30] VITALS: BP 123/79
[2018-07-18 12:26] VITALS: BP 104/61
== END | disposition home or self-care (01) ==
LOC: CHF HDHVI 09:44
PROVIDERS: ATTEND Internal Medicine Cardiovascular Disease
DX: I08.1 Rheumatic disorders of both mitral and tricuspid valves (principal); I11.0 Hypertensive heart disease with heart failure; I42.0 Dilated cardiomyopathy; I27.20 Pulmonary hypertension, unspecified; I25.10 Atherosclerotic heart disease of native coronary artery without angina pectoris; F33.2 Major depressive disorder, recurrent severe without psychotic features; F41.8 Other specified anxiety disorders; I50.9 Heart failure, unspecified
CPT/HCPCS: 93306; 96372; G0463; J3420

== ENCOUNTER 2018-07-30 22:51 | Emergency (ER) | payer MEDICAID ==
[~2018-07-30] VITALS: Ht 190.5 cm; Wt 89.4 kg
[~2018-07-30 22:51] MED LIST changes: -CYANOCOBALAMIN (B-12) 1000 MCG/1 ML VIAL IM ONE; -CYANOCOBALAMIN (B-12) 1000 MCG/1 ML VIAL ONE
[2018-07-30] MEDS ORDERED: ASPirin 81 mg TAB PO ONE (23:45)
[2018-07-30] MEDS ORDERED: ACETAMINOPHEN 325 MG TAB PO ONE (23:45)
[2018-07-31 00:04] LABS: Basophils # (auto) 0.2 uL; Basophils % (auto) 2.5 % (0.0-2.0); Eosinophils # (auto) 0.3 uL; Eosinophils % (auto) 3.6 % (0.0-7.0); Hematocrit 47.3 % (41.0-53.0); Hemoglobin 15.5 g/dL (13.5-17.5); Lymphocytes # (auto) 2.1 uL; Lymphocytes % (auto) 22.7 % (10.0-50.0); Mean Corpuscular Hemoglobin 29.1 pg (28.0-32.0); Mean Corpuscular Hgb Conc. 32.8 g/dL (32.0-36.0); Mean Corpuscular Volume 88.7 fL (80.0-100.0); Monocytes # (auto) 0.6 uL; Monocytes % (auto) 6.1 % (0.0-12.0); Neutrophils # (auto) 5.9 uL; Neutrophils % (auto) 65.1 % (37.0-80.0); Platelet Count (auto) 186 10^3/uL (140-450); Red Blood Cells 5.33 10^6/uL (4.5-5.90); Red Cell Distribution Width 13.5 % (11.8-14.3); White Blood Cell 9.1 10^3/uL (4.4-10.8)
[2018-07-31 00:20] LABS: INR 0.97 (0.9-1.15); Partial Thromboplastin Time 25.9 sec (23.78-33.04); Prothrombin Time 10.4 sec (9.27-12.13)
[2018-07-31 00:28] LABS: Alkaline Phosphatase 107 U/L (45-117); Bilirubin, Total 0.3 mg/dL (0.2-1.0); Potassium 3.7 mmol/L (3.5-5.1); Sodium 137 mmol/L (136-145); Total Protein 7.5 g/dL (6.4-8.2)
[2018-07-31 00:29] LABS: Alanine Aminotransferase 34 U/L (16-61); Albumin 3.9 g/dL (3.4-5.0); Anion Gap 10 (5-15); Aspartate Aminotransferase 22 U/L (15-37); BUN/Creatinine Ratio 11.9; Blood Urea Nitrogen 20 mg/dL (7-18); Calcium 8.2 mg/dL (8.5-10.1); Carbon Dioxide 27 mmol/L (21-32); Chloride 100 mmol/L (98-107); GFR African American 59 mL/min; GFR Non-African American 49 mL/min; Glucose 107 mg/dL (74-106); Magnesium 2.2 mg/dL (1.6-2.6)
[2018-07-31 02:15] LABS: Urine WBC None Seen /hpf (0 - 3)
[2018-07-31 02:36] LABS: Urine Bacteria NONE SEEN /hpf (None Seen); Urine Blood Negative /uL (Negative); Urine Mucus FEW (None Seen); Urine Specific Gravity 1.011 (1.001-1.035)
[2018-07-31 02:43] LABS: Alcohol, Urine < 3.0 mg/dL (0-5); Amphetamine Screen, Urine NEGATIVE (NEGATIVE); Barbiturate Scree,Urine NEGATIVE (NEGATIVE); Benzodiazephine Screen, Urine NEGATIVE (NEGATIVE); Cannabinoid Screen, Urine NEGATIVE (NEGATIVE); Cocaine Screen, Urine NEGATIVE (NEGATIVE); Opiate Scree,Urine NEGATIVE (NEGATIVE); Phencyclidine Screen, Urine NEGATIVE (NEGATIVE)
[2018-07-31] MEDS ORDERED: HYDROcodone-ACET 10/325MG TAB PO ONE (02:45)
[2018-07-31] MEDS ORDERED: DIGOXIN 0.25 MG TAB PO ONE (04:45)
[2018-07-31 05:00] VITALS: BP 122/73
== END 2018-07-31 05:49 | disposition home or self-care (01) ==
LOC: ER 22:51
DX: I11.0 Hypertensive heart disease with heart failure (principal); I50.9 Heart failure, unspecified; N28.9 Disorder of kidney and ureter, unspecified; I25.10 Atherosclerotic heart disease of native coronary artery without angina pectoris; Z95.0 Presence of cardiac pacemaker; Z88.5 Allergy status to narcotic agent; Z86.711 Personal history of pulmonary embolism; Z79.899 Other long term (current) drug therapy; Z79.01 Long term (current) use of anticoagulants
CPT/HCPCS: 36415; 71045; 80053; 80162; 80307; 80320; 81001; 83735; 83880; 84443; 84484; 85025; 85379; 85610; 85730; 93005; 94761

== ENCOUNTER → 2018-08-09 | Outpatient (CLI) | payer MEDICAID ==
[~2018-08-09] MED LIST changes: +ONDANSETRON HCL 4 MG/2 ML VIAL IV ONE; +ONDANSETRON HCL 4 MG/2 ML VIAL ONE; +SODIUM CHLORIDE 0.9% 1,000 ML IV ONE
[2018-08-09 16:56] VITALS: BP 131/61
== END | disposition home or self-care (01) ==
LOC: CHF HDHVI 15:34
PROVIDERS: ATTEND Internal Medicine Cardiovascular Disease
DX: E86.0 Dehydration (principal); R51 Headache; I13.0 Hypertensive heart and chronic kidney disease with heart failure and stage 1 through stage 4 chronic kidney disease, or unspecified chronic kidney disease; I50.42 Chronic combined systolic (congestive) and diastolic (congestive) heart failure; E11.22 Type 2 diabetes mellitus with diabetic chronic kidney disease; E11.42 Type 2 diabetes mellitus with diabetic polyneuropathy; N18.3 Chronic kidney disease, stage 3 (moderate); I48.0 Paroxysmal atrial fibrillation; I25.10 Atherosclerotic heart disease of native coronary artery without angina pectoris; I42.0 Dilated cardiomyopathy; I25.5 Ischemic cardiomyopathy; E44.0 Moderate protein-calorie malnutrition; E78.5 Hyperlipidemia, unspecified; E03.9 Hypothyroidism, unspecified; I27.20 Pulmonary hypertension, unspecified; I08.1 Rheumatic disorders of both mitral and tricuspid valves; G89.4 Chronic pain syndrome; F32.2 Major depressive disorder, single episode, severe without psychotic features; F41.9 Anxiety disorder, unspecified; Z79.01 Long term (current) use of anticoagulants; Z79.899 Other long term (current) drug therapy; Z86.718 Personal history of other venous thrombosis and embolism; Z86.711 Personal history of pulmonary embolism; Z95.810 Presence of automatic (implantable) cardiac defibrillator
CPT/HCPCS: 96361; 96374; G0463; J2405; J7030; 96360; 96375

== ENCOUNTER → 2018-09-04 | Outpatient (CLI) | payer MEDICAID ==
[~2018-09-04] MED LIST changes: +CYANOCOBALAMIN (B-12) 1000 MCG/1 ML VIAL IM ONE; +CYANOCOBALAMIN (B-12) 1000 MCG/1 ML VIAL ONE; +KETOROLAC TROMETH 30 MG/ML 1ML VIAL IV ONE; +KETOROLAC TROMETH 60MG/2ML VIAL IM ONE; +MAGNESIUM SULFATE 1GM/100ML 100 ML IV ONE; +MVI in SODIUM CHLORIDE 0.9% 1,010 ML ONE; +POTASSIUM CHL 10 Meq TABLET PO ONE; +POTASSIUM CHL 20 Meq TABLET PO ONE; -SODIUM CHLORIDE 0.9% 1,000 ML IV ONE
[2018-09-04 16:18] LABS: BUN/Creatinine Ratio 13.8; Calcium 8.8 mg/dL (8.5-10.1); Magnesium 2.3 mg/dL (1.6-2.6); Potassium 4.1 mmol/L (3.5-5.1)
[2018-09-04 17:21] LABS: Basophils # (auto) 0.1 uL; Basophils % (auto) 1.3 % (0.0-2.0); Eosinophils # (auto) 0.2 uL; Eosinophils % (auto) 3.8 % (0.0-7.0); Hematocrit 44.9 % (41.0-53.0); Hemoglobin 14.9 g/dL (13.5-17.5); Lymphocytes # (auto) 1.5 uL; Lymphocytes % (auto) 28.5 % (10.0-50.0); Mean Corpuscular Hemoglobin 29.2 pg (28.0-32.0); Mean Corpuscular Hgb Conc. 33.2 g/dL (32.0-36.0); Mean Corpuscular Volume 87.8 fL (80.0-100.0); Monocytes # (auto) 0.4 uL; Monocytes % (auto) 8.3 % (0.0-12.0); Neutrophils # (auto) 3.1 uL; Neutrophils % (auto) 58.1 % (37.0-80.0); Nucleated Red Blood Cells % 0.1 %; Platelet Count (auto) 167 10^3/uL (140-450); Red Blood Cells 5.12 10^6/uL (4.5-5.90); Red Cell Distribution Width 13.5 % (11.8-14.3); White Blood Cell 5.3 10^3/uL (4.4-10.8)
== END | disposition home or self-care (01) ==
LOC: CHF HDHVI 12:04
PROVIDERS: ATTEND Internal Medicine Cardiovascular Disease
DX: I13.0 Hypertensive heart and chronic kidney disease with heart failure and stage 1 through stage 4 chronic kidney disease, or unspecified chronic kidney disease (principal); E11.22 Type 2 diabetes mellitus with diabetic chronic kidney disease; N18.3 Chronic kidney disease, stage 3 (moderate); I50.42 Chronic combined systolic (congestive) and diastolic (congestive) heart failure; I25.10 Atherosclerotic heart disease of native coronary artery without angina pectoris; E83.40 Disorders of magnesium metabolism, unspecified; D64.9 Anemia, unspecified; R11.2 Nausea with vomiting, unspecified; F41.9 Anxiety disorder, unspecified; G89.4 Chronic pain syndrome; E03.9 Hypothyroidism, unspecified; E78.5 Hyperlipidemia, unspecified; F32.9 Major depressive disorder, single episode, unspecified; E44.0 Moderate protein-calorie malnutrition; Z95.810 Presence of automatic (implantable) cardiac defibrillator; I48.0 Paroxysmal atrial fibrillation; Z79.899 Other long term (current) drug therapy; Z86.718 Personal history of other venous thrombosis and embolism; Z79.01 Long term (current) use of anticoagulants; Z99.11 Dependence on respirator [ventilator] status
CPT/HCPCS: 36415; 80048; 83735; 85025; 96365; 96366; 96368; 96372; 96375; G0463; J1885; J2405; J3411; J3420; J3475

== ENCOUNTER → 2018-09-13 | Outpatient (CLI) | payer MEDICAID ==
[~2018-09-13] MED LIST changes: -CYANOCOBALAMIN (B-12) 1000 MCG/1 ML VIAL IM ONE; -CYANOCOBALAMIN (B-12) 1000 MCG/1 ML VIAL ONE; -KETOROLAC TROMETH 30 MG/ML 1ML VIAL IV ONE; -KETOROLAC TROMETH 60MG/2ML VIAL IM ONE; -MAGNESIUM SULFATE 1GM/100ML 100 ML IV ONE; -MVI in SODIUM CHLORIDE 0.9% 1,010 ML ONE; -ONDANSETRON HCL 4 MG/2 ML VIAL IV ONE; -ONDANSETRON HCL 4 MG/2 ML VIAL ONE; -POTASSIUM CHL 10 Meq TABLET PO ONE; -POTASSIUM CHL 20 Meq TABLET PO ONE
== END | disposition home or self-care (01) ==
LOC: Rad HDHVI 10:16
PROVIDERS: ATTEND Internal Medicine Cardiovascular Disease
DX: R51 Headache (principal)
CPT/HCPCS: 70450

== ENCOUNTER → 2018-11-10 | Outpatient (CLI) | payer MEDICAID ==
[2018-11-10 10:20] VITALS: BP 117/77
[2018-11-10 12:10] VITALS: BP 122/83
--- NOTE | 2018-11-10 12:10 | NUR ---
[facility] Discharge Instructions See e-MAR for any mediations given with this visit. Patient education given on disease process. Patient verbalized understanding. Previous labs reviewed. Patient discharged in stable condition with after care instructions and follow up appointment ONE WEEK. NOTE PATIENT HAS BEEN OUT OF MEDICATION FOR PAST MONTH, PRESCRIPTION FOR DIGOXIN 0.125MG DAILY AND FLOMAX 0.4MG DAILY SENT TO PATIENT PHARMACY. ENTRESTO 24/26MG SAMPLES GIVEN TO PATIENT. LABS DRAWN (CBC, BMP, BNP, MG)
[2018-11-10 16:23] LABS: BUN/Creatinine Ratio 12.7; Calcium 8.9 mg/dL (8.5-10.1); Magnesium 2.4 mg/dL (1.6-2.6); Potassium 3.5 mmol/L (3.5-5.1)
[2018-11-10 16:48] LABS: Basophils # (auto) 0.1 uL; Basophils % (auto) 1.3 % (0.0-2.0); Eosinophils # (auto) 0.1 uL; Eosinophils % (auto) 2.3 % (0.0-7.0); Hematocrit 46.5 % (41.0-53.0); Hemoglobin 15.6 g/dL (13.5-17.5); Lymphocytes # (auto) 1.9 uL; Lymphocytes % (auto) 30.2 % (10.0-50.0); Mean Corpuscular Hemoglobin 29.9 pg (28.0-32.0); Mean Corpuscular Hgb Conc. 33.6 g/dL (32.0-36.0); Monocytes # (auto) 0.5 uL; Monocytes % (auto) 7.6 % (0.0-12.0); Neutrophils # (auto) 3.7 uL; Neutrophils % (auto) 58.6 % (37.0-80.0); Nucleated Red Blood Cells % 0.1 %; Platelet Count (auto) 216 10^3/uL (140-450); Red Blood Cells 5.23 10^6/uL (4.5-5.90); Red Cell Distribution Width 13.1 % (11.8-14.3); White Blood Cell 6.4 10^3/uL (4.4-10.8)
== END | disposition home or self-care (01) ==
LOC: CHF HDHVI 10:14
PROVIDERS: ATTEND Internal Medicine Cardiovascular Disease
DX: I11.0 Hypertensive heart disease with heart failure (principal); I50.23 Acute on chronic systolic (congestive) heart failure; E83.40 Disorders of magnesium metabolism, unspecified; N40.0 Benign prostatic hyperplasia without lower urinary tract symptoms; D64.9 Anemia, unspecified; R53.83 Other fatigue
CPT/HCPCS: 36415; 71046; 80048; 83735; 83880; 85025; G0463

== ENCOUNTER 2018-12-14 21:16 | Emergency (ER) | payer MEDICAID ==
[~2018-12-14] VITALS: Ht 190.5 cm; Wt 91.6 kg
[~2018-12-14 21:16] MED LIST changes: -ATOR20TA50 PO; -CLOP75TA41 PO; -CYANOCOBALAMIN (B-12) 1000 MCG/1 ML VIAL IM ONE; -CYANOCOBALAMIN (B-12) 1000 MCG/1 ML VIAL ONE; -DICL1GEL26 TD; -FURO40TA4 PO; -KETOROLAC TROMETH 60MG/2ML VIAL IM ONE; -MVI in SODIUM CHLORIDE 0.9% 1,010 ML ONE; -MVI in SODIUM CHLORIDE 0.9% 500 ML IVB ONE; -ONDA-188 PO; -POTA-167 PO; -SACU1TAB PO; -SENN-62 PO; -diphenhdrAMINE HCL 50 MG/1 ML VL IV ONE; -diphenhdrAMINE HCL 50 MG/1 ML VL ONE
[2018-12-14 22:22] LABS: Basophils # (auto) 0 uL; Basophils % (auto) 0.3 % (0.0-2.0); Eosinophils # (auto) 0.1 uL; Eosinophils % (auto) 1.9 % (0.0-7.0); Hematocrit 44.7 % (41.0-53.0); Hemoglobin 14.9 g/dL (13.5-17.5); Lymphocytes # (auto) 1.6 uL; Lymphocytes % (auto) 24.1 % (10.0-50.0); Mean Corpuscular Hemoglobin 29.9 pg (28.0-32.0); Mean Corpuscular Hgb Conc. 33.3 g/dL (32.0-36.0); Mean Corpuscular Volume 89.7 fL (80.0-100.0); Monocytes # (auto) 0.6 uL; Monocytes % (auto) 9.1 % (0.0-12.0); Neutrophils # (auto) 4.3 uL; Neutrophils % (auto) 64.6 % (37.0-80.0); Platelet Count (auto) 187 10^3/uL (140-450); Red Blood Cells 4.98 10^6/uL (4.5-5.90); Red Cell Distribution Width 12.7 % (11.8-14.3); White Blood Cell 6.6 10^3/uL (4.4-10.8)
[2018-12-14 22:32] LABS: INR 0.97 (0.9-1.15); Partial Thromboplastin Time 24.7 sec (23.78-33.04); Prothrombin Time 10.4 sec (9.27-12.13)
[2018-12-14 22:34] LABS: Alanine Aminotransferase 33 U/L (16-61); Albumin 3.7 g/dL (3.4-5.0); Anion Gap 6 (5-15); Aspartate Aminotransferase 17 U/L (15-37); BUN/Creatinine Ratio 11.6; Blood Urea Nitrogen 20 mg/dL (7-18); Calcium 8.8 mg/dL (8.5-10.1); Carbon Dioxide 30 mmol/L (21-32); Chloride 106 mmol/L (98-107); GFR African American 58 mL/min; GFR Non-African American 48 mL/min; Glucose 95 mg/dL (74-106); Potassium 4.1 mmol/L (3.5-5.1); Sodium 142 mmol/L (136-145)
[2018-12-14 22:38] LABS: Alkaline Phosphatase 93 U/L (45-117); Bilirubin, Total 0.3 mg/dL (0.2-1.0); Total Protein 7.3 g/dL (6.4-8.2)
[2018-12-15] MEDS ORDERED: CLOP75TA41 PO (04:29)
[2018-12-15] MEDS ORDERED: SENN-62 PO (04:29)
[2018-12-15] MEDS ORDERED: SACU1TAB PO (04:29)
[2018-12-15] MEDS ORDERED: ATOR20TA50 PO (04:29)
[2018-12-15] MEDS ORDERED: POTA-167 PO (04:29)
[2018-12-15] MEDS ORDERED: FURO40TA4 PO (04:29)
[2018-12-15] MEDS ORDERED: ONDA-188 PO (04:29)
[2018-12-15] MEDS ORDERED: DICL1GEL26 TD (04:29)
[2018-12-15 10:16] VITALS: BP 114/73
== END 2018-12-15 12:05 | disposition home or self-care (01) ==
LOC: EDBD 21:16 → ER 21:19
DX: I42.9 Cardiomyopathy, unspecified (principal); R55 Syncope and collapse; R11.10 Vomiting, unspecified; R53.1 Weakness; I11.0 Hypertensive heart disease with heart failure; I25.10 Atherosclerotic heart disease of native coronary artery without angina pectoris; I50.9 Heart failure, unspecified; Z95.0 Presence of cardiac pacemaker; Z86.711 Personal history of pulmonary embolism; Z88.5 Allergy status to narcotic agent; Z79.899 Other long term (current) drug therapy; Z79.01 Long term (current) use of anticoagulants
CPT/HCPCS: 36415; 71045; 80053; 82550; 82553; 83880; 84484; 85025; 85610; 85730; 93005

== ENCOUNTER → 2018-12-14 | Outpatient (CLI) | payer MEDICAID ==
[~2018-12-14] VITALS: Ht 30.5 cm; Wt 91.6 kg
[~2018-12-14] MED LIST changes: +ATOR20TA50 PO; +CLOP75TA41 PO; +CYANOCOBALAMIN (B-12) 1000 MCG/1 ML VIAL IM ONE; +CYANOCOBALAMIN (B-12) 1000 MCG/1 ML VIAL ONE; +DICL1GEL26 TD; +FURO40TA4 PO; +KETOROLAC TROMETH 60MG/2ML VIAL IM ONE; +MVI in SODIUM CHLORIDE 0.9% 1,010 ML ONE; +MVI in SODIUM CHLORIDE 0.9% 500 ML IVB ONE; +ONDA-188 PO; +POTA-167 PO; +SACU1TAB PO; +SENN-62 PO; +diphenhdrAMINE HCL 50 MG/1 ML VL IV ONE; +diphenhdrAMINE HCL 50 MG/1 ML VL ONE
--- NOTE | 2018-12-14 09:00 | NUR ---
IN TO CLINIC WITH MULTIPLE COMPLAINTS OF FATIGUE AND CONCERNS OVER LABS. PT HAS QUESTIONS REGARDING LABS AND CURRENT STATUS. DESCRIBES PERFUSE ITCHING ALL OVER THAT HAS BEEN OCCURING "A LONG TIME' . PT REPORTS EXCESS FATIGUE. IN ATTENDANCE. VS WNL. IN NO ACUTE DISTRESS OR DISCOMFORT AT THIS TIME. RATES PAIN 4/10 TO CHEST NOW.
--- NOTE | 2018-12-14 10:30 | NUR ---
CLINIC PROVIDER CONSULTED IV insertion IV access obtained, via clean sterile technique by inserting 22 gauge catheter at after attempt(s). IV secured properly. No trauma to site. Patient tolerated procedure well. START IV FLUIDS MVI BAG AT 250 ML/HR
[2018-12-14 12:18] LABS: Basophils # (auto) 0.1 uL; Basophils % (auto) 0.9 % (0.0-2.0); Eosinophils # (auto) 0.1 uL; Eosinophils % (auto) 1.8 % (0.0-7.0); Hemoglobin 14.9 g/dL (13.5-17.5); Lymphocytes # (auto) 2.3 uL; Lymphocytes % (auto) 31.1 % (10.0-50.0); Mean Corpuscular Hemoglobin 30.1 pg (28.0-32.0); Mean Corpuscular Hgb Conc. 33.9 g/dL (32.0-36.0); Mean Corpuscular Volume 88.8 fL (80.0-100.0); Monocytes # (auto) 0.5 uL; Monocytes % (auto) 7.4 % (0.0-12.0); Neutrophils # (auto) 4.3 uL; Neutrophils % (auto) 58.8 % (37.0-80.0); Nucleated Red Blood Cells % 0.2 %; Platelet Count (auto) 178 10^3/uL (140-450); Red Blood Cells 4.96 10^6/uL (4.5-5.90); Red Cell Distribution Width 12.7 % (11.8-14.3); White Blood Cell 7.3 10^3/uL (4.4-10.8)
--- NOTE | 2018-12-14 12:25 | NUR ---
CHF INFUSION COMPLETED. TOLERATED WELL. AFFECT CHEERFUL AND STATES HE FEELS 'GREAT" DENIES ITCHING. DENIES PAIN. VS WNL. IV removal IV DC'd with sterile technique, catheter fully intact. Pressure dressing applied to site. Patient tolerated procedure well. Discharged with aftercare instructions per MD. HOME INSTRUCTIONS TO USE EPSOM SALTS FOR BATH DAILY. CHECK BP MID DAY AND TAKE A PROTEIN SNACK BEFORE NAP AND AT HAS DAILY. MEDICATION ADMINISTRATION 0.9 NS WITH MVI AT 250 ML/HR X 2 HOURS START AT 1030/STOP AT 1225 TORADOL 60 MG IM TO RIGHT DELTOID AT 1035 VIT B12 1000 MCG IM TO LEFT DELTOID AT 1041 BENADRYL 25 MG IVP AT 1035
[2018-12-14 12:28] LABS: Magnesium 2.4 mg/dL (1.6-2.6); Potassium 3.8 mmol/L (3.5-5.1)
[2018-12-14 12:30] VITALS: BP 106/64
[2018-12-14 12:33] LABS: BUN/Creatinine Ratio 11.6; Bilirubin, Total 0.3 mg/dL (0.2-1.0); Total Protein 7.6 g/dL (6.4-8.2)
== END | disposition home or self-care (01) ==
LOC: CHF HDHVI 08:49
PROVIDERS: ATTEND Internal Medicine Cardiovascular Disease
DX: I11.0 Hypertensive heart disease with heart failure (principal); I50.22 Chronic systolic (congestive) heart failure; I25.10 Atherosclerotic heart disease of native coronary artery without angina pectoris; D51.9 Vitamin B12 deficiency anemia, unspecified; E55.9 Vitamin D deficiency, unspecified; E29.1 Testicular hypofunction; R53.83 Other fatigue; R10.9 Unspecified abdominal pain; R11.10 Vomiting, unspecified; L29.9 Pruritus, unspecified; I42.9 Cardiomyopathy, unspecified; R55 Syncope and collapse; R53.1 Weakness; Z88.5 Allergy status to narcotic agent; Z79.01 Long term (current) use of anticoagulants; Z79.899 Other long term (current) drug therapy; Z86.711 Personal history of pulmonary embolism; Z95.0 Presence of cardiac pacemaker
CPT/HCPCS: 36415; 80053; 82306; 82607; 83036; 83735; 83880; 84403; 85025; 93701; 96365; 96366; 96372; 96375; G0463; J1200; J1885; J3411; J3420; J3475

== ENCOUNTER → 2019-01-03 | Outpatient (CLI) | payer MEDICAID ==
[~2019-01-03] VITALS: Ht 1 cm; Wt 0.5 kg
[~2019-01-03] MED LIST changes: +ATOR20TA50 PO; +CLOP75TA41 PO; +CYANOCOBALAMIN (B-12) 1000 MCG/1 ML VIAL ONE; +DICL1GEL26 TD; +FURO40TA4 PO; +ONDA-188 PO; +POTA-167 PO; +SACU1TAB PO; +SENN-62 PO; +SODIUM CHLORIDE 0.9% 500 ML IV ONE
[2019-01-03 15:05] VITALS: BP 123/73
--- NOTE | 2019-01-03 15:05 | NUR ---
[facility] PT ARRIVED AT [facility] COMPLAINING OF BACK PAIN AND NOT FEELING WEILL, UPDATED MD ORDERS RECIEVED AND NOTED
--- NOTE | 2019-01-03 15:10 | NUR ---
IV insertion IV access obtained, via clean sterile technique by inserting 20 gauge catheter at after attempt(s). IV secured properly. No trauma to site. Patient tolerated procedure well.
--- NOTE | 2019-01-03 16:30 | NUR ---
Discharge Instructions See e-MAR for any mediations given with this visit. Patient education given on disease process. Patient verbalized understanding. Previous labs reviewed. Patient discharged in stable condition with after care instructions and follow up appointment. 1505 NS BOLUS
--- NOTE | 2019-01-03 16:30 | NUR ---
IV removal IV DC'd with sterile technique, catheter fully intact. Pressure dressing applied to site. Patient tolerated procedure well. Discharged with aftercare instructions per MD. NOTE:
[2019-01-03 17:14] VITALS: BP 117/72
--- NOTE | 2019-01-30 12:32 | NUR ---
CHF LATE ADDENDUM FOR 01/03/19 SALINE BOLUS START AT 1515/STOP AT 1620 (250 ML)
== END | disposition home or self-care (01) ==
LOC: CHF HDHVI 15:24
PROVIDERS: ATTEND Internal Medicine Cardiovascular Disease
DX: R94.4 Abnormal results of kidney function studies (principal); E87.6 Hypokalemia; I11.0 Hypertensive heart disease with heart failure; I50.22 Chronic systolic (congestive) heart failure; I25.10 Atherosclerotic heart disease of native coronary artery without angina pectoris; Z79.899 Other long term (current) drug therapy; Z95.0 Presence of cardiac pacemaker; Z79.01 Long term (current) use of anticoagulants; Z86.711 Personal history of pulmonary embolism
CPT/HCPCS: 36415; 82565; 84132; 84520; 96360; 96372; G0463; J3420; J7040